=== PATIENT | male | born 1955 | race Caucasian/White ===

== ENCOUNTER 2018-10-02 11:00 | Inpatient (IN) | payer OTHER ==
--- NOTE | 2018-09-19 21:31 | HP ---
HISTORY AND PHYSICAL: DATE OF ADMISSION/SURGERY: 10/02/18 DATE OF OFFICE VISIT: 09/19/18 SURGEON: Mary Tan MD * (DICTATED BY CAMILLA GONZALEZ) PROCEDURE: Right total knee arthroplasty. CHIEF COMPLAINT: Right knee pain. HISTORY OF PRESENT ILLNESS: Mr. Calvo is a 63-year-old gentleman with end- stage osteoarthritis of the right knee. He has failed conservative treatment and elected to proceed with a right total knee arthroplasty, which is scheduled for 10/02/18. PAST MEDICAL HISTORY: Hypertension. PAST SURGICAL HISTORY: Testicular surgery for an undescended testicle as a small child. CURRENT MEDICATIONS: 1. Atenolol 50 mg daily. 2. Hydrochlorothiazide 25 mg daily. ALLERGIES: To MOTRIN causing a rash. FAMILY HISTORY: Coronary artery disease. SOCIAL HISTORY: He is a 63-year-old gentleman. He lives with his . He does not smoke or use drugs. Uses occasional alcohol. REVIEW OF SYSTEMS: A complete 14-point review of systems was reviewed with the patient. It was all negative or noncontributory. He denies history of DVT, PE , hepatitis, HIV or anesthesia problems. PHYSICAL EXAMINATION GENERAL: He is well developed, well nourished, in no acute distress. VITAL SIGNS: He stands 68 inches tall, weighs 295 pounds. His blood pressure is 142/80 and his heart rate is 68. HEENT: Normocephalic, atraumatic. NECK: Supple. No palpable lymph nodes. PULMONARY: The lungs are clear to auscultation bilaterally. CARDIO: Regular rate and rhythm. Strong S1, S2. ABDOMEN: Soft, nontender, nondistended. MUSCULOSKELETAL: Right lower extremity: The skin is intact. There are no open wounds or abrasions. There is a moderate joint effusion, some tenderness over the medial and lateral joint line. Range of motion is 10 to 110 degrees of flexion and there is a significant varus deformity. He has a 2+ dorsalis pedis pulse, intact sensation in his lower extremity. Muscle group strengths are intact at 5/5. NEUROLOGICAL: He is alert and oriented x3. ASSESSMENT AND PLAN: Mr. Calvo is a 63-year-old gentleman with end-stage osteoarthritis of the right knee. He has failed conservative treatment and elected to proceed with a right total knee arthroplasty. Surgery is scheduled for 10/02/[address] Tan discussed the risks and benefits of the surgery at today's visit and all of his questions were answered. He will follow up with Dr. Tan 2 weeks after the surgery. CAMILLA GONZALEZ [id number]/[facility] #: [id number] ANGELINA
[~2018-10-02 11:00] MED LIST: Buffered Lidocaine 0.9% SYRIN* 5 ML/SYR SYRINGE INTRADERM ONE; Tranexamic Acid 1,000 MG in NS 0.9% 50 ML* (outpatient use) IV SCH
--- OUTSIDE RECORDS SUMMARY | 2018-10-02 13:09 | XMS REPORT ---
:1955 External Reference #:[id number] Author Organization [employer] Address [address] [place] [address] [place] [address] Phone [phone] Care Team Providers Name Role Phone Roberto Lane MD Primary Care Physician Unavailable Payers Type Date Identification Numbers Payment Provider Subscriber Commercial Effective: Policy Number: [id number] [employer] Kathy Calvo 2012 Group Number: [id number] [address] Group Name: [id number] [place] [address] PayID: [id number] Problems Date Description Provider Status Onset: 03/07/2018 Localized, primary osteoarthritis Mary Tan M.D. Active Family History Date Family Member(s) Problem(s) Comments General Diabetes General Heart Disease General Hypertension Social History Type Date Description Comments Lives With Spouse Occupation [employer] ETOH Use Occasionally consumes alcohol Smoking Patient has never smoked Exercise Type/Frequency Exercises sporadically Allergies, Adverse Reactions, Alerts Date Description Reaction Status Severity Comments 03/07/2018 Motrin active Medications Medication Date Status Form Strength Qnty SIG Indications Ordering Provider Atenolol 00 Active Tablets 50mg 1 by Unknown 00 mouth every day Oxycodone HCL 04/09/20 Hx Tablets 5mg 40tabs 1-2 po Lj Martell 11 - q4h prn Zupruk, 03/07/20 pain Dari 18 Medications Administered in Office Medication Date Status Form Strength Qnty SIG Indications Ordering Provider Hyaluron Or Administered Injection Lewis Kaye M.D. [facility],For Intra-Articula r Inj Per Dose Hyaluron Or Administered Injection Mary Derivative,Ort 018 Dari [facility]ast [facility],For Intra-Articula r Inj Per Dose Hyaluron Or Administered Injection Mary Derivative,Ort 018 Dari Tan hilary,For Intra-Articula r Inj Per Dose Hyaluron Or Administered Injection Mary Derivative,OrDari Osborn,For Intra-Articula r Inj Per Dose Hyaluron Or Administered Injection Mary Derivative,OrDari Osborn,For Intra-Articula r Inj Per Dose Hyaluron Or Administered Injection Mary Derivative,Dari Chamberlain,For Intra-Articula r Inj Per Dose Depomedrol Administered Injection Mary 40MG Dandy Tan M.D. Depomedrol Administered Injection Mary 40MG Dandy Tan M.D. Vital Signs Date Vital Result Comment 09/19/2018 Height 68 inches 5'8" Weight 306.50 lb Heart Rate 68 /min BP Systolic 142 mmHg BP Diastolic 80 mmHg Respiratory Rate 20 /min Pain Level 5 BMI (Body Mass Index) 46.6 kg/m2 08/18/2018 Heart Rate 64 /min BP Systolic 140 mmHg BP Diastolic 86 mmHg Body Temperature 97.9 F Pain Level 2 07/30/2018 Height 68 inches 5'8" Weight 295.00 lb BP Systolic 118 mmHg BP Diastolic 74 mmHg Body Temperature 97.5 F BMI (Body Mass Index) 44.8 kg/m2 07/18/2018 Height 68 inches 5'8" Weight 290.00 lb BP Systolic 134 mmHg BP Diastolic 82 mmHg Body Temperature 98.2 F Pain Level 4 BMI (Body Mass Index) 44.1 kg/m2 07/11/2018 Height 67 inches 5'7" Heart Rate 66 /min BP Systolic 122 mmHg BP Diastolic 88 mmHg Respiratory Rate 18 /min Body Temperature 97.8 F Pain Level 6 06/06/2018 Height 67 inches 5'7" Weight 302.00 lb BP Systolic 128 mmHg BP Diastolic 80 mmHg Respiratory Rate 20 /min Pain Level 3 BMI (Body Mass Index) 47.3 kg/m2 03/07/2018 Height 67 inches 5'7" Weight 302.00 lb Heart Rate 73 /min BP Systolic 138 mmHg BP Diastolic 82 mmHg Respiratory Rate 18 /min Body Temperature 98.3 F Pain Level 3 BMI (Body Mass Index) 47.3 kg/m2 Results Test Date Test Result H/L Range Note Inr/Protime 09/19/2018 Inr 0.94 0.77-1.02 1 Laboratory test finding 09/19/2018 Partial Thrombo 30.2 seconds 26.0- 36.3 1 Time PTT Type & Screen 09/19/2018 Patient Blood Type O Positive 1 Antibody Screen NEGATIVE 1 Urinalysis Profile 09/19/2018 Urine Color Straw Urine Appearance Clear Urine Specific [place] 1.011 1.010-1.030 Urine pH 5.0 5-9 Urine Urobilinogen Negative Negative Urine Ketones Negative Negative Urine Protein Negative Negative Urine Leukocytes Negative Negative Urine Blood Negative Negative Urine Nitrite Negative Negative Urine Bilirubin Negative Negative Urine Glucose Negative Negative Urine Culture And 09/19/2018 Urine Culture SEE RESULT BELOW 2 Sensitivities CBC Auto Diff 09/17/2018 White Blood Count 8.6 10^3/uL 3.5-10.8 Red Blood Count 5.09 10^6/uL 4.00-5.40 Hemoglobin 14.9 g/dL 14.0-18.0 Hematocrit 43 % 42-52 Mean Corpuscular Volume 85 fL 80-94 Mean Corpuscular Hemoglobin 29 pg 27-31 Mean Corpuscular HGB Conc 34 g/dL 31-36 Red Cell Distribution Width 15 % 10.5-15 Platelet Count 323 10^3/uL 150-450 Mean Platelet Volume 7.3 um3 Low 7.4-10.4 Abs Neutrophils 6.4 10^3/uL 1.5-7.7 Abs Lymphocytes 1.4 10^3/uL 1.0-4.8 Abs Monocytes 0.7 10^3/uL 0-0.8 Abs Eosinophils 0.2 10^3/uL 0-0.6 Abs Basophils 0 10^3/uL 0-0.2 Abs Nucleated RBC 0 10^3/uL Granulocyte % 73.9 % 38-83 Lymphocyte % 16.0 % Low 25-47 Monocyte % 7.9 % High 0-7 Eosinophil % 1.7 % 0-6 Basophil % 0.5 % 0-2 Nucleated Red Blood Cells % 0.1 Basic Metabolic Panel 09/17/2018 Sodium 140 mmol/L 135-145 Potassium 4.1 mmol/L 3.5-5.0 Chloride 103 mmol/L 101-111 Co2 Carbon Dioxide 29 mmol/L 22-32 Anion Gap 8 mmol/L 2-11 Glucose 88 mg/dL 70-100 Blood Urea Nitrogen 18 mg/dL 6-24 Creatinine 1.00 mg/dL 0.67-1.17 BUN/Creatinine Ratio 18.0 8-20 Calcium 9.4 mg/dL 8.6-10.3 Egfr Non- 75.2 >60 Egfr 91.0 >60 3 1 BILATERAL PRIMARY OSTEOARTHRITIS OF KNEE, EFFUSION 2 SEE RESULT BELOW Name: KATHY CALVO : [address]: Mary Tan MD Acct: [id number] Unit: [id number] AGE: 63 Location: PAT Re09/19/18 SEX: M Status: REG REF SPEC: [id number] RJ: 09/19/[address] [facility] [address]: Mary Tan MD REQ: [id number] RECD: 09/19/18 STATUS: RONALDO RAMOS DR: Roberto Lane MD _ SOURCE: URINE SPDESC: ORDERED: Urine Culture QUERIES: Urine Source: Random Procedure Result Reported Site Urine Culture Final 09/20/18- 1238 ML No Growth (<1,000 CFU/mL) * ML - Main Lab . END OF REPORT DEPARTMENT OF PATHOLOGY, [address] [place] [address] Dakota Licea M.D. Director [facility] # [id number] 3 Because ethnic data is not always readily available, this report includes an eGFR for both -Americans and non- Americans. The National Kidney Disease Education Program (NKDEP) does not endorse the use of the MDRD equation for patients that are not between the ages of 18 and 70, are , have extremes of body size, muscle mass, or nutritional status, or are non- or non-. According to the National Kidney Foundation, irrespective of diagnosis, the stage of the disease is based on the level of kidney function: Stage Description GFR(mL/min/1.73 m(2)) 1 Kidney damage with normal or decreased GFR 90 2 Kidney damage with mild decrease in GFR 60-89 3 Moderate decrease in GFR 30-59 4 Severe decrease in GFR 15-29 5 Kidney failure <15 (or dialysis) Procedures Date CPT Code Description Status 07/30/2018 Inject/Drain Joint/Bursa Major W/O US Completed 07/18/2018 Inject/Drain Joint/Bursa Major W/O US Completed 07/11/2018 Inject/Drain Joint/Bursa Major W/O US Completed 03/07/2018 Inject/Drain Joint/Bursa Major W/O US Completed 01/28/2017 00620 Bronchospasm Provocation Evalu Completed 06/26/2013 94478 Stress Test Completed Encounters Type Date Location Provider CPT E/M Dx Office Visit 08/18/2018 2:45p [facility] M.D. 93272 M17.0 C.M.A. M25.461 M25.561 Office Visit 06/06/2018 8:15a [facility] M.D. 27941 M17.0 C.M.A. M25.461 M25.462 M25.562 M25.561 Office Visit 03/07/2018 8:00a [facility] M.D. 43387 M25.561 C.M.A. M25.562 M25.461 M25.462 M17.0 Office Visit 11/14/2011 9:00a [facility], 70658 805.4 Taye Chapin Office Visit 10/15/2011 9:00a [facility], 03866 805.4 Taye Chapin Office Visit 08/13/2011 9:45a [facility] 17384 805.4 Taye Chapin Office Visit 06/15/2011 9:30a [facility] 69513 805.4 Taye Chapin Office Visit 05/10/2011 1:00p [facility] 35500 805.4 Taye Chapin Office Visit 04/09/2011 1:30p [facility] 22839 805.4 Taye Chapin Plan of Care Future Appointment(s):10/15/2018 9:15 am - Mary Tan M.D. at [facility].10/02/2018 1:30 pm - Mary Tan M.D. at [facility].09/19/2018 - Mary Tan M.D.M25.461 Effusion, right kneeFollow up:Follow up: 2 weeks after [place].561 Pain in right kneeM17.0 Bilateral primary osteoarthritis of knee
--- OUTSIDE RECORDS SUMMARY | 2018-10-02 13:09 | XMS REPORT | Continuity of Care Document ---
:1955 External Reference #:[id number] M.D. Address [address] [facility] [address] [place] [address] Care Team Providers Name Role Phone HCP given Primary Care Physician Unavailable Payers Type Date Identification Numbers Payment Provider Subscriber Effective: 2012 Policy Number: [id number] [facility] Kathy Calvo Group Name: [employer] [address] PayID: [id number] [place] [address] Advance Directives Description No Information Available Problems Date Description Provider Status Onset: 03/16/2009 Benign essential hypertension Roberto Lane M.D. Active Onset: 03/16/2009 Disorder of lipid metabolism Roberto Lane M.D. Active Onset: 03/28/2015 Arthralgia of the lower leg Durga Omer D.O. Active Onset: 03/28/2015 Localized, primary osteoarthritis Durga Omer D.O. Active Onset: 08/31/[address] M.D. Active Family History Date Family Member(s) Problem(s) Comments Father 1926 Father age 77had an "oxygen" problem prior to his suicide Mother 1923 Mother General health good Number of Children 3 sons First Son Zion; lives in [place], [place] First Son 1983 Second Son Otto; [facility] mechanical commissioning engineer Second Son 1987 Third Son Quaker Third Son 1990 First Brother General Health Good First Brother Aj Second Brother General Health Good Second Brother Perry Third Brother General Health Good Third Brother Bro Social History Type Date Description Comments Sex Unknown Education Highest level of education completed is 2 years of college Marital Status Patient is Employment 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 Tobacco Use Reviewed: 09/01/14 Never Smoked Cigarettes Smoking Status Reviewed: 09/17/18 Never Smoked Cigarettes ETOH Use Rare Alcohol Use Recreational Drug Use Never Used Drugs Tobacco Use Start: Unknown Non Smoker / No Tobacco Sun Exposure Minimum amount of sun exposure Seat Belt/Car Seat Always uses a seat belt Currently Active The patient is currently sexually active (once in awhile) # Partners in a Lifetime The patient has had 1 sexual partner Additional Info Sexual preference is women Allergies, Adverse Reactions, Alerts Date Description Reaction Status Severity Comments 01/27/2015 Motrin Blotchy skin lasting Active Mild days 02/08/2004 Nsaid Inactive Motrin blotchy skin reaction 01/27/2015 NKDA Inactive Medications Medication Date Status Form Strength Qnty SIG Indications Ordering Provider Metamucil Powder 09/16 Active one dose at lunchtime daily Aspirin Ec 06/[address] 81mg 1 pill I10 Silcoff, daily for flo Mejia M.D. disease prevention Atenolol 08/31 Active Tablets 50mg 90tab Take 1 I10 Silcoff, s Tablet By Stevan Mejia M.D. Every Morning For High Blood Pressure Fish Oil 03/01 Active Capsules 2 daily Hydrochlorothiazi 03/17 Active Tablets 25mg 90tab Take 1 I10 Silcoff, s Tablet By Roberto Mouth M.D. Every Morning For High Blood Pressure Ventolin HFA 08/06 Hx Aerosol 108(90Bas 1inha 1-2 puff R05 Silcoff, e) ler q4 hours Major Mejia mcg/Act for breath M.D. 01/07 Flovent HFA 08/06 Hx Aerosol 110mcg/Ac 12gm 2 R05 Silcoff, t inhalation Major Mejia s by mouth M.DIrma 09/24 2 times daily; rinse mouth after use. for cough Tussin Chest 08/06 Hx Syrup 100mg/5ML 118ml 5-10 ml q R05 Silcoff, 6 hours Roberto - for cough, M.D. 08/24 prn Transderm-Scop 07/12 Hx Patches 1mg/3Days 1unit apply 1 Silcoff, (1.5 MG) 72HR s patch as Roberto, - needed, at M.D. 07/19 least hours before exposure to motion sickness causing travel; change q3 days if needed Clarinex 12/20 Hx Tablets 5mg 30tab take 1 R05 s tablet by A. - mouth once Klepack, 01/20 daily for M.D. reducing allergic reactions Potassium/Magnesi 12/06 Hx Tablets 1 po daily Unknown um /2016 - 09/16 Symbicort 02/28 Hx Aerosol 160-4.5mc 10.20 2 puffs R05 Silcoff, g/Act 0gm 2x/day; Roberto - agustín M.D. 12/04 after use; stop when cough at bay x1wk; resume at onset of colds Prednisone 02/28 Hx Tablets 20mg 21tab 3 by mouth R05 Silcoff, s every Roberto, - morning M.D. 03/08 for 5 days then 2 every morning for 3 days then stop it Azithromycin 10/03 Hx Tablets 250mg 6tabs take 2 J01.10 Sopchak, tablets by Durga, - mouth D.O. 10/07 daily for 3 days Amoxicillin 09/29 Hx Tablets 875mg 20tab 1 tab J01.10 Sopchak, s twice a Durga, - day for 10 D.O. Symbicort 09/29 Hx Aerosol 80-4.5mcg 1samp 2 R05 Sopchak, /2014 /Act le inhalation Durga, - twice a D.O. 10/13 day sxs under control then decr to 1 puff twice a day, then can reduce to 1x/day and then stop Glucosamine 03/01 Hx Capsules 2 daily Unknown Chondroitin Complex - 09/16 Hydrocodone 12/15 Hx Liquid ER 10-8mg/5M 100ml 1 teaspoon 786.2 Sopchak , Polistirex/Chlorp L at night Durga, heniramine - and every D.O. Polistirex 01/26 12hours as needed for cough/slee p Amlodipine 02/26 Hx Tablets 10mg 90tab take 1 I10 Silcoff, Besylate s tablet Roberto, - daily for M.D. 12/07 high blood /2015 pressure Amlodipine 08/03 Hx Tablets 10mg 90tab take 1 401.1 Silcoff, Besylate s tablet Roberto, - daily for .D. 02/25 high blood /2013 pressure Amlodipine 03/11 Hx Tablets 5mg 90tab Take 1 401.1 Silcoff, Besylate s Tablet Roberto, - Once Daily M.D. 08/03 For High /2012 Blood Pressure. Losartan 08/01 Hx Tablets 50mg 90tab 1 by mouth 401.1 Silcoff, Potassium s every day Roberto, - for high M.D. 10/13 blood /2011 pressure (to replace lisinopril ) Doxycycline 11/30 Hx Capsules 100mg 20cap [address] Hyclate s ten days A. - until gone Lennox, 12/10.D. Benzonatate 11/30 Hx Capsules 100mg 24cap 1 qid prn 786.2 s cough A. - Lennox, 12/10 M.D. Viagra 01/17 Hx Tablets 100mg 18tab 1 by mouth 607.84 Silcoff, s every day Roberto, - as needed .D. 08/01 for erectile dysfunctio n Auralgan Otic 05/02 Hx 1Bott instill 388.70 Silcoff, le 2-4 gtts Roberto, - into .D. 05/12 painful ear q2h prn for ear pain Amoxicillin-Pot 04/28 Hx Tablets 875-125mg 20tab 1 po bid 381.4 Silcoff , Clavulanate s Roberto, - M.D. 05/08 Flovent HFA 04/28 Hx Aerosol 110mcg/Ac 1unit 2 puff bid 786.2 Silcoff, t s for cough; Roberto, - stop when .D. 05/28 cough at bay for 1 week (gargle after use) Proair HFA 04/28 Hx Aerosol 108(90Bas 8.500 2 puffs 786.2 Silcoff, e) mcg/ac gm q4h prn Roberto, - for cough M.D. 05/28 Tobramycin 04/26 Hx Solution 0.3% 5ml 1-2 gtts 372.00 Silco, ou qid x5 Roberto, - days; march M.D. 05/01 stop when eye symptoms resolved for 24hrs Azithromycin 04/26 Hx Tablets 250mg 6tabs 2 po qd on 381.4 Silcoff, day 1 then Roberto, - 1 po qd M.D. 04/28 for 4 days Robitussin ac 04/26 Hx 8Oz 2 tsp po 786.2 Silcoff q4h prn Roberto, - for cough; M.D. 05/06 try to limit to nighttime use (as it is sedating) Atenolol 03/17 Hx Tablets 50mg 1/2 po qd 401.1 Silco for high Roberto, - blood M.D. 03/24 pressure x1wk then D/C Cialis 03/17 Hx Tablets 10mg 18tab 1/2-1 po 607.84 Silco s qd prn Roberto, - M.D. 01/16 Zetia 11/05 Hx Tablets 10mg 90tab 1 po qd 272.2 klepack s for - cholestero 03/15 Crestor 12/26 Hx Tablets 10mg 30tab 1 PO PM 272.2 klepack /2006 s - 11/05 Atenolol 11/07 Hx Tablets 50mg 90tab 1 PO QHS 401.1 Silco s for high Roberto, - BP M.D. 03/17 Flonase 07/27 Hx Adrian 50mcg/Spr 1unit 2 sprays 388.70 klepa ay s in each - nostril 07/10 once A day Amoxil 07/14 Hx Tablets 500mg 30tab 1 po tid 381.00 Silcoff s for ear Roberto, - infection M.D. 07/24 Cortisporin Otic 07/14 Hx Suspension 5mg;78882 1Bott 3-4 gtts 380.22 Silcoff U;10mg/ML le tid To Roberto, - Right Ear M.D. 07/21 For 1 Week /2004 Asp 11/21 Hx Capsules 81mg 100ca 1 Tab qd . ps To Prevent Gabriel, - A Stroke M.D. 03/28 Lisinopril 11/21 Hx Tablets 20mg 90tab Take 11/26 401.1 Silcoff, s tab daily Roberto, - for blood M.D. 08/01 pressure Anusol HC 05/19 Hx Cream 2.5% 30gm apply to . anal area Gabriel, - tid Or prn M.D. 03/16 Lipitor 05/19 Hx Tablets 20 90tab 1 tab qd klepa s to reducde - blood fat 12/26 Lipitor 02/01 Hx Tablets 10mg 90tab 1 for high s blood fat Gabriel, - po qd to M.D. 11/29 blood fats Rhinocort Nasal 01/19 Hx Suspension 50mcg/Inh 1 spray . Inhalation alation per Gabriel, - nostril 1 M.D. 05/19 0r 2 x qd Zyrtec D 01/19 Hx Tablets 5mg;120 60tab 1 PO bid mg s Gabriel, - M.D. 05/19 Aspirin Hx Tablets 325mg 1 by mouth Unknown /0000 every day - as needed 06/11 Medications Administered in Office Medication Date Status Form Strength Qnty SIG Indications Ordering Provider injection, Administered Injection arin Omer, 10 mg 015 Linda Calixto Immunizations CPT Code Status Date Vaccine Lot # [id number] Given 12/20/2016 Influenza Virus Vaccine, Quadrivalent, [place] [id number] Given 09/01/2014 Zostavax [id number] Given 09/03/2012 Flu, Split Virus 3Yrs 72292 Given 11/30/2011 Adacel or Boostrix, TDaP [id number] Given 08/27/2011 Flu, Split Virus 3Yrs [id number] Given 09/25/2003 Flu, Split Virus 3Yrs Vital Signs Date Vital Result Comment 09/17/2018 10:28am BP Systolic 152 mmHg BP Diastolic 96 mmHg Heart Rate 72 /min reg Respiratory Rate 16 /min not laboured Height 68 inches 5'8" Weight 287.00 lb BMI (Body Mass Index) 43.6 kg/m2 07/09/2018 9:04am BP Systolic 130 mmHg R arm sitting BP Diastolic 82 mmHg R arm sitting Heart Rate 60 /min reg Height 68 inches 5'8" w/shoes Weight 299.00 lb w/shoes BMI (Body Mass Index) 45.5 kg/m2 01/08/2018 11:09am BP Systolic 132 mmHg BP Diastolic 82 mmHg BP Systolic Recheck 160 mmHg R arm sitting BP Diastolic Recheck 90 mmHg R arm sitting Weight 297.00 lb w/shoes 08/06/2017 4:38pm BP Systolic 132 mmHg BP Diastolic 80 mmHg Body Temperature 97.9 F Weight 284.00 lb with sneakers 06/12/2017 8:38am BP Systolic 140 mmHg BP Diastolic 80 mmHg BP Systolic Recheck 136 mmHg R arm sitting BP Diastolic Recheck 82 mmHg R arm sitting Heart Rate 56 /min reg Height 68 inches 5'8" w/shoes Weight 279.00 lb w/shoes BMI (Body Mass Index) 42.4 kg/m2 01/23/2017 10:12am BP Systolic 142 mmHg BP Diastolic 82 mmHg Heart Rate 88 /min at rest, 72 after ambulation O2 % BldC Oximetry 96 % at rest, 95% after ambulation Weight 291.00 lb 12/20/2016 2:01pm BP Systolic 140 mmHg BP Diastolic 84 mmHg Heart Rate 66 /min O2 % BldC Oximetry 96 % Body Temperature 97.9 F Height 68 inches 5'8" Weight 303.00 lb BMI (Body Mass Index) 46.1 kg/m2 02/29/2016 12:03pm BP Systolic 148 mmHg BP Diastolic 80 mmHg Heart Rate 84 /min reg Respiratory Rate 14 /min not laboured Body Temperature 98.2 F Height 68 inches w/shoes Weight 297.00 lb w/shoes BMI (Body Mass Index) 45.2 kg/m2 09/29/2015 11:26am BP Systolic 152 mmHg BP Diastolic 84 mmHg Body Temperature 98.3 F 08/31/2015 9:04am BP Systolic 136 mmHg BP Diastolic 78 mmHg BP Systolic Recheck 148 mmHg R arm sitting BP Diastolic Recheck 90 mmHg R arm sitting Heart Rate 84 /min reg Body Temperature 98.2 F Height 68 inches 5'8" w/shoes Weight 286.00 lb w/shoes BMI (Body Mass Index) 43.5 kg/m2 06/13/2015 10:48am BP Systolic 150 mmHg BP Diastolic 74 mmHg Weight 288.00 lb shoes on 03/28/2015 12:14pm BP Systolic 165 mmHg BP Diastolic 79 mmHg Heart Rate 76 /min Weight 284.00 lb w/shoes 03/02/2015 8:44am BP Systolic 138 mmHg BP Diastolic 76 mmHg BP Systolic Recheck 132 mmHg R arm sitting BP Diastolic Recheck 80 mmHg R arm sitting Heart Rate 88 /min reg Height 68 inches 5'8" shoes on Weight 297.00 lb shoes on BMI (Body Mass Index) 45.2 kg/m2 01/27/2015 1:30pm BP Systolic 146 mmHg BP Diastolic 84 mmHg Weight 296.00 lb Shoes on 12/15/2014 2:39pm BP Systolic 138 mmHg BP Diastolic 84 mmHg Heart Rate 96 /min Body Temperature 97.7 F Weight 290.00 lb 09/01/2014 9:06am BP Systolic 138 mmHg BP Diastolic 86 mmHg BP Systolic Recheck 140 mmHg R arm sitting BP Diastolic Recheck 80 mmHg R arm sitting Height 68 inches 5'8" shoes on Weight 285.00 lb shoes on BMI (Body Mass Index) 43.3 kg/m2 06/23/2014 1:18pm BP Systolic 130 mmHg BP Diastolic 88 mmHg Weight 289.00 lb 02/26/2014 4:22pm BP Systolic 154 mmHg BP Diastolic 82 mmHg BP Systolic Recheck 150 mmHg R arm sitting BP Diastolic Recheck 96 mmHg R arm sitting Weight 295.00 lb 10/07/2013 8:38am BP Systolic 144 mmHg BP Diastolic 82 mmHg BP Systolic Recheck 138 mmHg R arm sitting BP Diastolic Recheck 70 mmHg R arm sitting Weight 290.00 lb shoes on 08/03/2013 10:27am BP Systolic 138 mmHg BP Diastolic 94 mmHg BP Systolic Recheck 148 mmHg R arm sitting BP Diastolic Recheck 94 mmHg R arm sitting Heart Rate 82 /min reg Respiratory Rate 14 /min not laboured Height 67.5 inches 5'7.50" Weight 285.00 lb BMI (Body Mass Index) 44.0 kg/m2 08/03/2013 10:23am Height 67.5 inches 5'7.50" Weight 285.00 lb BMI (Body Mass Index) 44.0 kg/m2 03/11/2013 11:42am BP Systolic 140 mmHg BP Diastolic 98 mmHg BP Systolic Recheck 148 mmHg R arm sitting BP Diastolic Recheck 88 mmHg R arm sitting Heart Rate 92 /min reg Respiratory Rate 14 /min not laboured O2 % BldC Oximetry 9596 % ambulating 96% Body Temperature 99.2 F Weight 277.00 lb 11/14/2012 9:05am BP Systolic 140 mmHg BP Diastolic 90 mmHg BP Systolic Recheck 140 mmHg R arm sitting BP Diastolic Recheck 90 mmHg R arm sitting Weight 275.00 lb Last Menstrual Period 0 10/13/2012 1:54pm BP Systolic 148 mmHg BP Diastolic 84 mmHg Respiratory Rate 16 /min not laboured Body Temperature 98.0 F Weight 269.00 lb Last Menstrual Period 0 09/08/2012 1:07pm BP Systolic 150 mmHg BP Diastolic 92 mmHg Respiratory Rate 16 /min not laboured 08/01/2012 12:13pm BP Systolic 130 mmHg BP Diastolic 90 mmHg BP Systolic Recheck 130 mmHg R arm sitting BP Diastolic Recheck 92 mmHg R arm sitting Heart Rate 72 /min reg Height 67.75 inches 5'7.75" Weight 275.00 lb BMI (Body Mass Index) 42.1 kg/m2 11/30/2011 9:04am BP Systolic 112 mmHg BP Diastolic 80 mmHg Respiratory Rate 16 /min Body Temperature 97.9 F Height 67.75 inches 5'7.75" Weight 274.00 lb BMI (Body Mass Index) 42.0 kg/m2 02/14/2011 3:22pm BP Systolic 140 mmHg BP Diastolic 90 mmHg Weight 275.00 lb Last Menstrual Period 0 01/17/2011 9:06am BP Systolic 120 mmHg BP Diastolic 84 mmHg Height 68.75 inches 5'8.75" Weight 271.00 lb BMI (Body Mass Index) 40.3 kg/m2 07/17/2010 9:17am BP Systolic 118 mmHg BP Diastolic 82 mmHg BP Systolic Recheck 122 mmHg R arm sitting BP Diastolic Recheck 70 mmHg R arm sitting Heart Rate 90 /min reg Weight 268.00 lb 05/15/2010 4:06pm BP Systolic 130 mmHg BP Diastolic 92 mmHg Body Temperature 98.1 F 04/28/2010 3:49pm BP Systolic 130 mmHg BP Diastolic 80 mmHg Heart Rate 100 /min reg Respiratory Rate 18 /min not laboured Body Temperature 99.0 F 04/26/2010 11:48am BP Systolic 124 mmHg BP Diastolic 90 mmHg Heart Rate 116 /min reg Respiratory Rate 16 /min not laboured Body Temperature 98.5 F Weight 265.00 lb Last Menstrual Period 0 03/17/2010 9:55am BP Systolic 140 mmHg BP Diastolic 76 mmHg Heart Rate 76 /min reg Respiratory Rate 14 /min not laboured Height 67.75 inches 5'7.75" Weight 269.00 lb BMI (Body Mass Index) 41.2 kg/m2 Last Menstrual Period 0 12/30/2009 2:35pm BP Systolic 155 mmHg BP Diastolic 73 mmHg Heart Rate 76 /min Weight 270.00 lb Last Menstrual Period 0 03/16/2009 10:51am BP Systolic 100 mmHg BP Diastolic 80 mmHg Weight 260.00 lb Last Menstrual Period 0 04/22/2008 10:30am BP Systolic 136 mmHg BP Diastolic 86 mmHg Height 68.25 inches 5'8.25" Without Shoes Weight 264.50 lb BMI (Body Mass Index) 39.9 kg/m2 12/10/2007 11:38am BP Systolic 122 mmHg recheck BP Diastolic 80 mmHg recheck Height 68.25 inches 5'8.25" Without Shoes 12/10/2007 11:21am BP Systolic 138 mmHg please recheck this for me BP Diastolic 90 mmHg please recheck this for me Height 68.25 inches 5'8.25" Without Shoes Weight 269.00 lb BMI (Body Mass Index) 40.6 kg/m2 Last Menstrual Period 0 11/05/2007 9:51am BP Systolic 126 mmHg BP Diastolic 70 mmHg Height 68.25 inches 5'8.25" Without Shoes Weight 268.00 lb BMI (Body Mass Index) 40.4 kg/m2 12/26/2006 8:57am BP Systolic 122 mmHg BP Diastolic 74 mmHg Height 68.25 inches 5'8.25" Without Shoes Weight 259.00 lb BMI (Body Mass Index) 39.1 kg/m2 11/07/2006 3:55pm BP Systolic 152 mmHg BP Diastolic 96 mmHg Body Temperature 98.3 F Height 68.25 inches 5'8.25" Without Shoes Weight 264.00 lb BMI (Body Mass Index) 39.8 kg/m2 07/10/2006 9:16am BP Systolic 120 mmHg recheck BP Diastolic 82 mmHg recheck Height 68.25 inches 5'8.25" Without Shoes 07/10/2006 8:59am BP Systolic 142 mmHg BP Diastolic 84 mmHg Height 68.25 inches Without Shoes Weight 258.00 lb BMI (Body Mass Index) 38.9 kg/m2 05/09/2006 2:15pm BP Systolic 140 mmHg BP Diastolic 84 mmHg Height 67 inches 5'7" Weight 266.00 lb BMI (Body Mass Index) 41.7 kg/m2 11/29/2005 9:03am BP Systolic 126 mmHg BP Diastolic 88 mmHg Height 67 inches 5'7" Weight 257.00 lb BMI (Body Mass Index) 40.2 kg/m2 10/01/2005 11:04am BP Systolic 120 mmHg BP Diastolic 90 mmHg Height 67 inches 5'7" 08/17/2005 4:04pm BP Systolic 130 mmHg BP Diastolic 90 mmHg Height 67 inches 5'7" 07/27/2005 3:15pm BP Systolic 130 mmHg BP Diastolic 84 mmHg Body Temperature 98.3 F Height 67 inches 5'7" 07/14/2005 12:02pm BP Systolic 122 mmHg BP Diastolic 88 mmHg Body Temperature 98.7 F Height 67 inches 5'7" Weight 264.00 lb BMI (Body Mass Index) 41.3 kg/m2 03/01/2005 8:51am BP Systolic 120 mmHg BP Diastolic 90 mmHg Height 67 inches 5'7" Weight 266.00 lb BMI (Body Mass Index) 41.7 kg/m2 11/21/2004 2:35pm Height 67 inches 5'7" Weight 265.00 lb BMI (Body Mass Index) 41.5 kg/m2 05/19/2004 3:51pm BP Systolic 152 mmHg R Arm LG Cuff Sitting BP Diastolic 100 mmHg R Arm LG Cuff Sitting Height 67 inches 5'7" Weight 261.00 lb BMI (Body Mass Index) 40.9 kg/m2 02/02/2004 2:03pm Body Temperature 99.1 F Weight 260.00 lb Last Menstrual Period 0 01/19/2004 1:04pm Body Temperature 98.2 F Weight 259.00 lb Results Test Date Facility Test Result H/L Range Note Urine Micro Inhouse 01/08/2018 In House Ua Specific Ozan 1.025 Ua PH 5.0 Basic Metabolic Panel 01/08/2018 [facility] Sodium 139 mmol/L 133- 145 [phone] Potassium 4.3 mmol/L 3.5-5.0 Chloride 104 mmol/L 101-111 Co2 Carbon Dioxide 29 mmol/L 22-32 Anion Gap 6 mmol/L 2-11 Glucose 83 mg/dL 70-100 Blood Urea Nitrogen 19 mg/dL 6-24 Creatinine 1.04 mg/dL 0.67-1.17 BUN/Creatinine Ratio 18.3 8-20 Calcium 9.3 mg/dL 8.6-10.3 Egfr Non- 72.1 >60 Egfr 92.8 >60 1 Basic Metabolic Panel 01/23/2017 [facility] Sodium 135 mmol/L 133- 145 [phone] Potassium 3.8 mmol/L 3.5-5.0 Chloride 97 mmol/L Low 101-111 Co2 Carbon Dioxide 32 mmol/L 22-32 Anion Gap 6 mmol/L 2-11 Glucose 88 mg/dL 70-100 Blood Urea Nitrogen 13 mg/dL 6-24 Creatinine 1.02 mg/dL 0.67-1.17 BUN/Creatinine Ratio 12.7 8-20 Calcium 9.7 mg/dL 8.6-10.3 Egfr Non- 74.0 >60 Egfr 95.2 >60 2 Laboratory test 08/14/2016 [facility] Surgical Pathology SEE RESULT 3 finding [phone] BELOW Urine Micro Inhouse 03/02/2015 In House Ua WBC 2-5 Ua RBC 2-4 Ua Casts - Ua Epi 0-3 Ua Other sediment, fibers Ua Glucose - Ua Bilirubin - Ua Ketones - Ua Specific Ozan 1.020 Ua Blood - Ua PH 6.0 Ua Protein - Ua Urobilinogen - Ua Nitrite - Ua Leukocytes - Basic Metabolic Panel 03/02/2015 [facility] Sodium 137 mmol/L 133- 145 [phone] Potassium 3.9 mmol/L 3.5-5.0 Chloride 100 mmol/L Low 101-111 Co2 Carbon Dioxide 28 mmol/L 22-32 Anion Gap 9 mmol/L 2-11 Glucose 114 mg/dL High 70-100 Blood Urea Nitrogen 15 mg/dL 6-24 Creatinine 0.99 mg/dL 0.67-1.17 BUN/Creatinine Ratio 15.2 8-20 Calcium 9.2 mg/dL 8.6-10.3 Egfr Non- 77.1 >60 Egfr 99.2 >60 4 Xray 01/27/2015 [facility] X-Ray, Knee, 3 mild OA 5 Views, Bilateral bilaterally Lipid Profile 02/22/2014 [facility] Triglycerides 145 mg/dL 6 (Trig/Chol/HDL) [phone] Cholesterol 234 mg/dL 7 HDL Cholesterol 35.5 mg/dL 8 LDL Cholesterol 170 mg/dL 9 Laboratory test finding 02/22/2014 [facility] Glucose 85 mg/dL 70- 100 10 [phone] Urine Micro Inhouse 08/03/2013 In House Ua WBC - Ua RBC - Ua Casts - Ua Epi - Ua Other - Ua Glucose - Ua Bilirubin - Ua Ketones - Ua Specific Ozan 1.010 Ua Blood - Ua PH 5.0 Ua Protein - Ua Urobilinogen - Ua Nitrite - Ua Leukocytes - Basic Metabolic Panel 07/24/2013 [facility] Sodium 136 mmol/L 133- 145 [phone] Potassium 3.5 mmol/L 3.5-5.0 Chloride 100 mmol/L Low 101-111 Co2 Carbon Dioxide 31.0 mmol/L 22-32 Anion Gap 5.0 mmol/L 2-11 Glucose 87 mg/dL 70-100 Blood Urea Nitrogen 14 mg/dL 6-24 Creatinine 0.90 mg/dL 0.50-1.40 BUN/Creatinine Ratio 15.6 8-20 Calcium 8.8 mg/dL 8.1-9.9 Egfr Non- 86.7 >60 Egfr 111.5 >60 11 Lipid Profile 07/24/2013 [facility] Triglycerides 128 mg/dL 40-200 (Trig/Chol/HDL) [phone] Cholesterol 233 mg/dL High Less than 200 HDL Cholesterol 36 mg/dL Low 40-60 12 Cholesterol/HDL Ratio 6.5 Average High 1-4.44 LDL Cholesterol 171.4 High Less Than 100 13 Testosterone Free & 07/24/2013 [facility] Free Testosterone 7.1 ng/dL - 14 Total [phone] ng/dl Testosterone 204 ng/dL 240-950 15 Laboratory test 07/24/2013 [facility] Hepatitis C Nonreactive Nonreactive finding [phone] Antibody Urine Micro 08/01/2012 In House Ua WBC - Inhouse Ua RBC - Ua Casts - Ua Epi - Ua Other - Ua Glucose - Ua Bilirubin - Ua Ketones - Ua Specific Ozan 1.010 Ua Blood - Ua PH 7.0 Ua Protein - Ua Urobilinogen - Ua Nitrite - Ua Leukocytes - Basic Metabolic Panel 07/30/2012 [facility] Sodium 139 mmol/L 135- 145 [phone] Potassium 3.8 mmol/L 3.5-5.0 Chloride 102 mmol/L 101-111 Co2 (Carbon Dioxide) 29.0 mmol/L 22-32 Anion Gap 8.0 mmol/L 2-11 16 Glucose 88 mg/dL 70-100 BUN 16 mg/dL 6-24 Creatinine 1.1 mg/dL 0.50-1.40 One Over Creatinine 0.90 BUN/Creatinine Ratio 14.5 8-20 Calcium 9.0 mg/dL 8.1-9.9 eGFR Non- 69.0 > 60 eGFR 88.7 > 60 17 Xray 11/30/2011 [facility] X-Ray, Chest, 2 wnl Views Laboratory test 11/30/2011 [facility] Bordetella 18 finding [phone] Pertussis ----- <SEE NOTE> CBC Auto Diff 03/26/2011 [facility] White Blood Count 16.0 CUMM High 4.8-10 [phone] .8 Red Cell Count 5.02 CUMM 4.6-6.2 Hemoglobin 14.9 g/dL 14.0-18.0 Hematocrit 44 % 42-52 Mean Corpuscular Volume 87 um3 80-94 Mean Corpuscular Hemoglob 30 pg 27-31 Mean Corpuscular HGB Cone 34 g/dL 32-36 Redcell Distribution WDTH 14 % 10.5-15 Platelet Count 260 CUMM 150-450 Mean Platelet Volume 7.1 um3 Low 7.4-10.4 19 Manual Differential 03/26/2011 [facility] Polysegmented Neutrophil 81 % 38-83 [phone] Band Neutrophil 4 % 0-8 Lymphocyte 10 % Low 25-47 Monocyte 4 % 0-13 Basophil 1 % 0-2 Absolute Neutrophil Count 13.6 RBC Morphology NORMAL Protime 03/26/2011 [facility] Inr 1.12 0.82-1.17 20 [phone] Protime 13.3 SEC 10.2-14.8 21 Laboratory test 03/26/2011 [facility] PTT (Aptt) 26.6 25.15-38.53 finding [phone] Comp Metabolic 03/26/2011 [facility] Sodium 134 mmol/L Low 135-145 Panel [phone] Potassium 3.8 mmol/L 3.5-5.0 Chloride 98 mmol/L Low 101-111 Co2 (Carbon Dioxide) 27.0 mmol/L 22-32 Anion Gap 9.0 mmol/L 2-11 22 Glucose 119 mg/dL High 70-100 BUN 20 mg/dL 6-24 Creatinine 1.50 mg/dL High 0.50-1.40 One Over Creatinine 0.60 BUN/Creatinine Ratio 13.3 8-20 Calcium 9.2 mg/dL 8.1-9.9 Total Protein 7.0 GM/DL 6.2-8.1 Albumin 4.0 GM/DL 3.6-5.4 Globulin 3.0 GM/DL 2-4 Albumin/Globulin Ratio 1.3 1-3 Bilirubin Total 0.9 mg/dL 0.4-1.5 23 Alkaline Phosphatase 64 U/L 39-117 Alt (SGPT) 34 U/L 17-63 Ast (Sgot) 38 U/L 12-42 eGFR Non- 48.4 > 60 eGFR 62.3 > 60 24 Basic Metabolic Panel 07/17/2010 [facility] Sodium 137 mmol/L 135- 145 [phone] Potassium 4.2 mmol/L 3.5-5.0 Chloride 103 mmol/L 101-111 Co2 (Carbon Dioxide) 28.0 mmol/L 22-32 Anion Gap 6.0 mmol/L 2-11 25 Glucose 83 mg/dL 70-100 26 BUN 12 mg/dL 6-24 Creatinine 0.95 mg/dL 0.50-1.40 One Over Creatinine 1.00 BUN/Creatinine Ratio 12.6 8-20 Calcium 9.3 mg/dL 8.1-9.9 27 eGFR Non- 87.5 > 60 eGFR 105.9 > 60 28 Xray 04/28/2010 [facility] X-Ray, Chest, 2 Nil acute 29 Views Urine Micro Inhouse 03/17/2010 In House Ua WBC - Ua RBC - Ua Casts - Ua Epi - Ua Other - Ua Glucose - Ua Bilirubin - Ua Ketones - Ua Specific Ozan 1.030 Ua Blood - Ua PH 5.0 Ua Protein tr Ua Urobilinogen - Ua Nitrite - Ua Leukocytes - Basic Metabolic Panel 03/17/2010 [facility] Sodium 140 mmol/L 135- 145 [phone] Potassium 4.6 mmol/L 3.5-5.0 Chloride 105 mmol/L 101-111 Co2 (Carbon Dioxide) 27.0 mmol/L 22-32 Anion Gap 8.0 mmol/L 2-11 30 Glucose 89 mg/dL 70-100 31 BUN 18 mg/dL 6-24 Creatinine 1.10 mg/dL 0.50-1.40 One Over Creatinine 0.90 BUN/Creatinine Ratio 16.4 8-20 Calcium 9.3 mg/dL 8.1-9.9 32 eGFR Non- 73.9 > 60 eGFR 89.4 > 60 33 Laboratory test finding 03/17/2010 [facility] Alt (SGPT) 26 U/L 17- 63 [phone] Lipid Profile 03/17/2010 [facility] Triglyceride 143 mg/dL 40-200 (Trig/Chol/HDL) [phone] Cholesterol 238 mg/dL High Less Than 200 34 High Density Lipoprotein 31 mg/dL Low 40-60 35 Cholesterol/HDL Ratio 7.68 AVERAGE High 1-4.97 Low Density Lipoprotein 178 mg/dL High Less Than 100 36 Basic Metabolic Panel 03/16/2009 [facility] Sodium 135 mmol/L 135- 145 [phone] Potassium 4.6 mmol/L 3.5-5.0 Chloride 103 mmol/L 101-111 Co2 (Carbon Dioxide) 26.0 mmol/L 22-32 Anion Gap 6.0 mmol/L 2-11 37 Glucose 90 mg/dL 70-100 38 BUN 19 mg/dL 6-24 Creatinine 1.10 mg/dL 0.50-1.40 One Over Creatinine 0.90 BUN/Creatinine Ratio 17.3 8-20 Calcium 9.4 mg/dL 8.1-9.9 39 Lipid Profile 03/16/2009 [facility] Triglyceride 127 mg/dL 40-200 (Trig/Chol/HDL) [phone] Cholesterol 250 mg/dL High Less Than 200 40 High Density Lipoprotein 33 mg/dL Low 40-60 41 Cholesterol/HDL Ratio 7.58 AVERAGE High 1-4.97 Low Density Lipoprotein 192 mg/dL High Less Than 100 42 Lipid Profile 12/05/2007 [facility] Cholesterol/HDL 6.39 High 1-4.97 (Trig/Chol/HDL) [phone] Ratio AVERAGE Cholesterol 179 mg/dL Less Than 200 43 Triglyceride 133 mg/dL 40-200 High Density Lipoprotein 28 mg/dL Low 40-60 44 Low Density Lipoprotein 124 mg/dL High Less Than 100 45 Liver Function Panel 12/05/2007 [facility] Albumin/Globulin Ratio 1.5 1-3 [phone] Albumin 3.8 GM/DL 3.6-5.4 Alkaline Phosphatase 71 U/L 39-117 Alt (SGPT) 30 U/L 17-63 Ast (Sgot) 21 U/L 12-42 Bilirubin Direct 0.2 mg/dL 0.1-0.5 Globulin 2.6 GM/DL 2-4 Indirect Bilirubin 0.9 mg/dL High 0.1-0.75 Bilirubin Total 1.1 mg/dL 0.4-1.5 Total Protein 6.4 GM/DL 6.2-8.1 Lipid Profile 10/30/2007 [facility] Cholesterol/HDL 7.36 High 1-4.97 (Trig/Chol/HDL) [phone] Ratio AVERAGE Cholesterol 243 mg/dL High Less Than 200 46 Triglyceride 128 mg/dL 40-200 High Density Lipoprotein 33 mg/dL Low 40-60 47 Low Density Lipoprotein 184 mg/dL High Less Than 100 48 Comp Metabolic Panel 10/30/2007 [facility] Over Creatinine 0.83 [phone] Anion Gap 7.0 mmol/L 2-11 49 Albumin/Globulin Ratio 1.3 1-3 Albumin 3.6 GM/DL 3.6-5.4 Alkaline Phosphatase 73 U/L 39-117 Alt (SGPT) 30 U/L 17-63 Ast (Sgot) 20 U/L 12-42 BUN 15 mg/dL 6-24 Calcium 9.0 mg/dL 8.7-10.2 Chloride 104 mmol/L 101-111 Co2 (Carbon Dioxide) 28.0 mmol/L 22-32 Globulin 2.8 GM/DL 2-4 Glucose 88 mg/dL 70-105 Potassium 4.2 mmol/L 3.5-5.0 Sodium 139 mmol/L 135-145 Bilirubin Total 0.8 mg/dL 0.4-1.5 Total Protein 6.4 GM/DL 6.2-8.1 BUN/Creatinine Ratio 12.5 8-20 Creatinine 1.2 mg/dL 0.5-1.4 Laboratory test 10/30/2007 [facility] PSA Screening 2.95 NG/ML 0-4 50 finding [phone] Lipid Profile 02/24/2007 [facility] Cholesterol/HDL 5.03 AVERAGE High 1-4.97 (Trig/Chol/HDL) [phone] Ratio Cholesterol 161 mg/dL Less Than 200 51 Triglyceride 86 mg/dL 40-200 High Density Lipoprotein 32 mg/dL Low 40-60 52 Low Density Lipoprotein 112 mg/dL High Less Than 100 53 Liver Function Panel 02/24/2007 [facility] Albumin/Globulin Ratio 1.6 1-3 [phone] Albumin 4.2 GM/DL 3.6-5.4 Alkaline Phosphatase 69 U/L 39-117 Alt (SGPT) 27 U/L 17-63 Ast (Sgot) 20 U/L 12-42 Bilirubin Direct 0.1 mg/dL 0.1-0.5 Globulin 2.7 GM/DL 2-4 Indirect Bilirubin 0.5 mg/dL 0.1-0.75 Bilirubin Total 0.6 mg/dL 0.4-1.5 Total Protein 6.9 GM/DL 6.2-8.1 Lipid Profile 12/19/2006 [facility] Cholesterol/HDL 6.70 High 1-4.97 (Trig/Chol/HDL) [phone] Ratio AVERAGE Cholesterol 201 mg/dL High Less Than 200 54 Triglyceride 86 mg/dL 40-200 High Density Lipoprotein 30 mg/dL Low 40-60 55 Low Density Lipoprotein 154 mg/dL High Less Than 100 56 Comp Metabolic Panel 12/19/2006 [facility] One Over Creatinine 1.00 [phone] Anion Gap 6.0 mmol/L 2-11 57 Albumin/Globulin Ratio 1.6 1-3 Albumin 3.8 GM/DL 3.6-5.4 Alkaline Phosphatase 61 U/L 39-117 Alt (SGPT) 27 U/L 17-63 Ast (Sgot) 20 U/L 12-42 BUN 18 mg/dL 6-24 Calcium 8.6 mg/dL Low 8.7-10.2 Chloride 102 mmol/L 101-111 Co2 (Carbon Dioxide) 27.0 mmol/L 22-32 Globulin 2.4 GM/DL 2-4 Glucose 87 mg/dL 70-105 Potassium 4.3 mmol/L 3.5-5.0 Sodium 135 mmol/L 135-145 Bilirubin Total 0.7 mg/dL 0.4-1.5 Total Protein 6.2 GM/DL 6.2-8.1 BUN/Creatinine Ratio 18.0 8-20 Creatinine 1.0 mg/dL 0.5-1.4 Laboratory test 12/19/2006 [facility] PSA Screening 2.18 NG/ML 0.01- 4.0 58 finding [phone] Lipid Profile 07/05/2006 [facility] Cholesterol/HDL 4.45 AVERAGE 1- 4.97 59 (Trig/Chol/HDL) [phone] Ratio Cholesterol 147 mg/dL Less Than 200 60 Triglyceride 80 mg/dL 40-200 High Density Lipoprotein 33 mg/dL Low 40-60 61 Low Density Lipoprotein 98 mg/dL Less Than 100 62 Lipid Profile 11/22/2005 [facility] Cholesterol 148 mg/dL Less Than 63 (Trig/Chol/HDL) [phone] 200 Triglyceride 80 mg/dL 40-200 High Density Lipoprotein 35 mg/dL Low 40-60 64 Low Density Lipoprotein 97 mg/dL Less Than 100 65 Cholesterol/HDL Ratio 4.23 AVERAGE 1-4.97 Comp Metabolic Panel 11/22/2005 [facility] Over Creatinine 0.90 [phone] Anion Gap 7.0 mmol/L 2-11 66 Albumin/Globulin Ratio 1.5 1-3 Albumin 4.1 GM/DL 3.6-5.4 Alkaline Phosphatase 91 U/L 39-117 Alt (SGPT) 36 U/L 17-63 Ast (Sgot) 21 U/L 12-42 BUN 14 mg/dL 6-24 Calcium 9.4 mg/dL 8.7-10.2 Chloride 103 mmol/L 101-111 Co2 (Carbon Dioxide) 30.0 mmol/L 22-32 Globulin 2.7 GM/DL 2-4 Glucose 82 mg/dL 70-105 Potassium 4.1 mmol/L 3.5-5.0 Sodium 140 mmol/L 135-145 Bilirubin Total 0.8 mg/dL 0.4-1.5 Total Protein 6.8 GM/DL 6.2-8.1 BUN/Creatinine Ratio 12.7 8-20 Creatinine 1.1 mg/dL 0.5-1.4 Laboratory test finding 11/22/2005 [facility] PSA Screening 3.8 NG/ML 0-4 67 [phone] Basic Metabolic Panel 02/27/2005 [facility] Anion Gap 6.0 mmol/L 2- 11 68 [phone] BUN 16 mg/dL 6-24 Calcium 9.4 mg/dL 8.7-10.2 Chloride 104 mmol/L 101-111 Co2 (Carbon Dioxide) 29.0 mmol/L 22-32 Creatinine 1.2 mg/dL 0.5-1.4 Glucose 90 mg/dL 70-105 Potassium 4.5 mmol/L 3.5-5.0 Sodium 139 mmol/L 135-145 BUN/Creatinine Ratio 13.3 8-20 Lipid Profile 11/16/2004 [facility] Cholesterol 175 mg/dL Less Than 69 (Trig/Chol/HDL) [phone] 200 Triglyceride 122 mg/dL 40-200 High Density Lipoprotein 40 mg/dL 40-60 Low Density Lipoprotein 111 mg/dL High Less Than 100 70 Cholesterol/HDL Ratio 4.38 AVERAGE 1-4.97 Comp Metabolic Panel 11/16/2004 [facility] Anion Gap 3 mmol/L 2-11 71 [phone] Albumin/Globulin Ratio 1.4 1-3 Albumin 4.0 GM/DL 3.6-5.4 Alkaline Phosphatase 92 U/L 39-117 Alt (SGPT) 33 U/L 17-63 Ast (Sgot) 20 U/L 12-42 BUN 9 mg/dL 6-24 Calcium 9.6 mg/dL 8.7-10.2 Chloride 104 mmol/L 101-111 Co2 (Carbon Dioxide) 32 mmol/L 22-32 Creatinine 1.0 mg/dL 0.5-1.4 Globulin 2.8 GM/DL 2-4 Glucose 93 mg/dL 70-105 Potassium 4.5 mmol/L 3.5-5.0 Sodium 139 mmol/L 135-145 Bilirubin Total 0.9 mg/dL 0.4-1.5 Total Protein 6.8 GM/DL 6.2-8.1 BUN/Creatinine Ratio 9.0 8-20 CBC With Electronic 05/17/2004 [facility] White Blood 7.2 CUMM 4.8- 10.8 Diff [phone] Count Abs Basophils 0.1 0-0.2 Abs Eosinophils 0.1 0-0.6 Abs Grans 5.0 1.5-7.7 Abs Lymphs 1.5 1.0-4.8 Abs Mononuclear 0.5 0-0.8 Basophil % 1.1 % 0-2 Hematocrit 47 % 42-52 Hemoglobin 15.7 g/dL 14.0-18.0 Eosinophil % 1.7 % 0-6 Gran % 68.6 % 38-83 Lymph % 21.3 % 20-45 Mean Corpuscular HGB Cone 34 g/dL 32-36 Mean Corpuscular Hemoglob 30 pg 27-31 Mean Corpuscular Volume 89 um3 80-94 Mean Platelet Volume 7.7 um3 7.4-10.4 Mononuclear % 7.3 % 1-9 Platelet Count 272 CUMM 150-450 Red Cell Count 5.28 CUMM 4.6-6.2 Redcell Distribution WDTH 14 % 10.5-15 Comp Metabolic Panel 05/17/2004 [facility] Anion Gap 6.0 mmol/L 2- 11 72 [phone] Albumin/Globulin Ratio 1.6 1-3 Albumin 4.1 GM/DL 3.6-5.4 Alkaline Phosphatase 78 U/L 39-117 Alt (SGPT) 28 U/L 17-63 Ast (Sgot) 20 U/L 12-42 BUN 10 mg/dL 6-24 Calcium 9.3 mg/dL 8.7-10.2 Chloride 105 mmol/L 101-111 Co2 (Carbon Dioxide) 30.0 mmol/L 22-32 Creatinine 1.2 mg/dL 0.5-1.4 Globulin 2.5 GM/DL 2-4 Glucose 86 mg/dL 70-105 Potassium 4.1 mmol/L 3.5-5.0 Sodium 141 mmol/L 135-145 Bilirubin Total 1.1 mg/dL 0.4-1.5 Total Protein 6.6 GM/DL 6.2-8.1 BUN/Creatinine Ratio 8.3 8-20 Lipid Profile 05/17/2004 [facility] Cholesterol/HDL 6.13 High 1-4.97 (Trig/Chol/HDL) [phone] Ratio AVERAGE Cholesterol 190 mg/dL Less Than 200 73 Triglyceride 137 mg/dL 40-200 High Density Lipoprotein 31 mg/dL Low 40-60 74 Low Density Lipoprotein 132 mg/dL High Less Than 100 75 Comp Metabolic Panel 05/16/2004 [facility] Anion Gap 6.0 mmol/L 2- 11 76 [phone] Albumin/Globulin Ratio 1.6 1-3 Albumin 4.1 GM/DL 3.6-5.4 BUN 10 mg/dL 6-24 Calcium 9.3 mg/dL 8.7-10.2 Chloride 105 mmol/L 101-111 Co2 (Carbon Dioxide) 30.0 mmol/L 22-32 Creatinine 1.2 mg/dL 0.5-1.4 Globulin 2.5 GM/DL 2-4 Glucose 86 mg/dL 70-105 Potassium 4.1 mmol/L 3.5-5.0 Sodium 141 mmol/L 135-145 Total Protein 6.6 GM/DL 6.2-8.1 BUN/Creatinine Ratio 8.3 8-20 CBC With Electronic 01/26/2004 [facility] Platelet Count 278 CUMM 150-450 Diff [phone] White Blood Count 9.2 CUMM 4.8-10.8 Abs Basophils 0.2 0-0.2 Abs Eosinophils 0.2 0-0.6 Abs Grans 6.6 1.5-7.7 Abs Lymphs 1.5 1.0-4.8 Abs Mononuclear 0.6 0-0.8 Hematocrit 44 % 42-52 Hemoglobin 15.7 g/dL 14.0-18.0 Eosinophil % 2.0 % 0-6 Mean Corpuscular HGB Cone 36 g/dL 32-36 Mean Corpuscular Hemoglob 31 pg 27-31 Mean Corpuscular Volume 88 um3 80-94 Mean Platelet Volume 7.1 um3 Low 7.4-10.4 Red Cell Count 4.98 CUMM 4.6-6.2 Redcell Distribution WDTH 13 % 10.5-15 Gran % 72.1 % 38-83 Lymph % 16.9 % Low 20-45 Mononuclear % 6.7 % 1-9 Lipid Profile 01/26/2004 [facility] Cholesterol/HDL 7.06 High 1-4.97 (Trig/Chol/HDL) [phone] Ratio AVERAGE Cholesterol 240 mg/dL High Less Than 200 77 Triglyceride 128 mg/dL 40-200 High Density Lipoprotein 34 mg/dL Low 40-60 78 Low Density Lipoprotein 180 mg/dL High Less Than 100 79 Comp Metabolic Panel 01/26/2004 [facility] Anion Gap 7.0 mmol/L 2- 11 80 [phone] Albumin/Globulin Ratio 1.4 1-3 Albumin 4.1 GM/DL 3.6-5.4 BUN 12 mg/dL 6-24 Calcium 9.4 mg/dL 8.7-10.2 Chloride 103 mmol/L 101-111 Co2 (Carbon Dioxide) 29.0 mmol/L 22-32 Creatinine 1.2 mg/dL 0.5-1.4 Globulin 2.9 GM/DL 2-4 Glucose 84 mg/dL 70-105 Potassium 4.4 mmol/L 3.5-5.0 Sodium 139 mmol/L 135-145 Total Protein 7.0 GM/DL 6.2-8.1 BUN/Creatinine Ratio 10.0 8-20 Alkaline Phosphatase 84 U/L 39-117 Alt (SGPT) 28 U/L 17-63 Ast (Sgot) 22 U/L 12-42 Bilirubin Total 1.1 mg/dL 0.4-1.5 CBC With Manual Diff 01/26/2004 [facility] RBC Morphology NORMAL [phone] Eosenophil 2 % 0-6 Lymphocyte 12 % 5-47 Monocyte 8 % 0-13 Polysegmented Neutrophil 78 % 38-83 1 Because ethnic data is not always readily [...] 15-29 5 Kidney failure <15 (or dialysis) 2 Because ethnic data is not always readily [...] 15-29 5 Kidney failure <15 (or dialysis) 3 SEE RESULT BELOW Name: KATHY CALVO : [address]: Bladimir Sousa MD Acct: [id number] Unit: [id number] AGE: 60 Location: ENDO Re08/14/16 SEX: M Status: REG REF SPEC: [id number] RJ: 08/14/16-10[address] [facility] [address]: Bladimir Sousa MD REQ: [id number] RECD: 08/14/165031 STATUS: SUNSHINE RAMOS DR: Roberto Lane MD _ ORDERED: LEVEL IV/2 FINAL DIAGNOSIS 1. Colon, transverse, biopsy: -- Inflammatory (juvenile) polyp. 2. Colon, sigmoid, biopsy: -- Hyperplastic polyp. CLINICAL HISTORY Second colonoscopy; negative family history POST-OPERATIVE DIAGNOSIS Colonoscopy to cecum - loopy as expected - 4 mm transverse and 2 mm sigmoid lesions. Conclusions/Plan: Polyps - 5 years GROSS DESCRIPTION 1. The specimen is received in formalin labeled, Transverse Colon Polyp, and consists of a 0.4 x 0.3 x 0.3 cm, blake-white, polypoid, soft tissue fragment, which is submitted entirely in one cassette. 2. The specimen is received in formalin labeled, Biopsy Sigmoid Nodule, and consists of a 0.3 x 0.2 x 0.1 cm, blake-pink, irregular, soft tissue fragment, which is submitted entirely in one cassette. Signed (signature on file) January Rhodes MD 1008 END OF REPORT * ML=Testing performed at Main Lab DEPARTMENT OF PATHOLOGY, [address] [place] [address] Dakota Licea M.D. Director [facility] # [id number] 4 Because ethnic data is not always readily [...] 15-29 5 Kidney failure <15 (or dialysis) 5 calcified body in popliteal fossa right knee 6 Desirable <150 Borderline high 150-199 High 200-499 Very High >500 7 Desirable <200 Borderline high 200-239 High >239 8 Low <40 Desirable: 40-60 High: >60 9 Desirable <100 Near Optimal 100-129 Borderline high 130-159 High 160-189 Very High >189 10 FASTING 11 Because ethnic data is not always readily [...] 15-29 5 Kidney failure <15 (or dialysis) 12 HDL Interpretation: Undesirable: High Risk: Less than 40 mg/dL Desirable: Low Risk: Greater than 60 mg/dL 13 LDL Interpretation: Low Risk Optimal Level: LDL Less than 100 mg/dL Near or Above Optimal: LDL 100-129 mg/dL Borderline High Risk: LDL 130-159 mg/dL High Risk: LDL 160-189 mg/dL Very High Risk: LDL Greater than 189 mg/dL 14 Testing performed by [facility]. 15 Testing performed by Liquid Chromatography-Tandem Mass Spectrometry (LC-MS/MS). Test Performed by: [facility] [address] [address] [employer]: Imtiaz Starr III, M.D. 16 Anion gap measurement may be of limited value in the presence of any alkalosis, especially in a combined acid base disorder. . 17 Because ethnic data is not always readily [...] 15-29 5 Kidney failure <15 (or dialysis) 18 RUN DATE: 12/02/11 [facility] NMI LIVE PAGE 1 RUN TIME: 1224 Specimen Inquiry RUN USER: INTERFACE Name: KATHY CALVO Accnick#: [id number] Status: REG REF Re11/30/11 Age/Sex: 56/M Unit#: [id number] Location: [facility] : 53 SPEC #: [id number] RJ: 11/30/11 STATUS: COMP REQ #: [id number] RECD: 11/30/[address] [facility] [address]: Lennox LOWE,Lane Hameed SOURCE: NASOPHARYN ENTR: 11/30/[address]: URBANO: ORDERED: PERTUSSIS [place] COMMENTS: NO ANTIBIOTICS QUERIES: MEDENT REQUISITION # [id number] Procedure Result Verified Site > BORDETELLA PERTUSSIS Final 12/02/111223 ML BORDETELLA BY RAPID PCR Negative for Bordetella pertussis/parapertussis DNA Laboratory developed test. Test performed by: [employer] [place], [place] [address] - [facility] State Permit #[id number] [address] [place] [address] DEPARTMENT OF PATHOLOGY, [address] [place] [address] [facility] Permit #[id number] Dakota Licea M.D. Director Ashleigh Raines M.D. Ends Breakage Clerk 19 Neutrophilia % Lymphopenia % 20 Recommended INR for Patients on Oral Anticoagulants Prophylaxis 2.0 - 3.0 Treatment of thrombosis 2.0 - 3.0 Prevention of embolism 2.0 - 3.0 Prevention of embolism from prosthetic heart valves 2.5 - 3.5 21 DIAGNOSIS,TREATMENT,AND THERAPY MUST BE BASED ON THE INR VALUE ALONE. 22 Anion gap measurement may be of limited value in the presence of any alkalosis, especially in a combined acid base disorder. . 23 A metabolite of Naproxen, O-desmethylnaproxen, has been shown to interfere with the [employer]man method for measuring total bilirubin. Samples from patients who have taken Naproxen have shown spurious elevation in total bilirubin levels. 24 Because ethnic data is not always readily [...] 15-29 5 Kidney failure <15 (or dialysis) 25 Anion gap measurement may be of limited value in the presence of any alkalosis, especially in a combined acid base disorder. . 26 Note change in reference range as of 07/15/08. The change was based on recommendations from the [employer]. 27 Please note change in reference range effective 08 . 28 Because ethnic data is not always readily [...] 15-29 5 Kidney failure <15 (or dialysis) 29 No sig change c/w 02/13/01 30 Anion gap measurement may be of limited value in the presence of any alkalosis, especially in a combined acid base disorder. . 31 Note change in reference range as of 07/15/08. The change was based on recommendations from the [employer]. 32 Please note change in reference range effective 08 . 33 Because ethnic data is not always readily [...] 15-29 5 Kidney failure <15 (or dialysis) 34 CHOLESTEROL INTERPRETATION: Desirable: Less than 200 MG/DL Borderline-High Risk: 200-239 MG/DL High-Risk: 240 MG/DL and over 35 HDL INTERPRETATION: Undesirable: High Risk: Less than 40 MG/DL Desirable: Low Risk: Greater than 60 MG/DL 36 LDL INTERPRETATION: Low Risk Optimal Level: LDL Less than 100 MG/DL Near or Above Optimal: LDL 100-129 MG/DL Borderline High Risk: LDL 130-159 MG/DL High Risk: LDL 160-189 MG/DL Very High Risk: LDL Greater than 189 MG/DL 37 Anion gap measurement may be of limited value in the presence of any alkalosis, especially in a combined acid base disorder. . 38 Note change in reference range as of 07/15/08. The change was based on recommendations from the [employer]. 39 Please note change in reference range effective 08 . 40 CHOLESTEROL INTERPRETATION: Desirable: Less than 200 MG/DL Borderline-High Risk: 200-239 MG/DL High-Risk: 240 MG/DL and over 41 HDL INTERPRETATION: Undesirable: High Risk: Less than 40 MG/DL Desirable: Low Risk: Greater than 60 MG/DL 42 LDL INTERPRETATION: Low Risk Optimal Level: LDL Less than 100 MG/DL Near or Above Optimal: LDL 100-129 MG/DL Borderline High Risk: LDL 130-159 MG/DL High Risk: LDL 160-189 MG/DL Very High Risk: LDL Greater than 189 MG/DL 43 Classification: Desirable . 44 Classification: Low . 45 CALCULATED LDL APPROXIMATES THE VALUE OF A DIRECT LDL MEASUREMENT. Classification: Near or above optimal . 46 Classification: High . 47 Classification: Low . 48 CALCULATED LDL APPROXIMATES THE VALUE OF A DIRECT LDL MEASUREMENT. Classification: High . 49 Anion gap measurement may be of limited value in the presence of any alkalosis, especially in a combined acid base disorder. . 50 * SERUM LEVELS OF PSA MEASURED USING THE [employer] ACCESS HYBRITECH IMMUNOASSAY SHOULD NOT BE INTERPRETED ABSOLUTE EVIDENCE OF THE PRESENCE OR ABSENCE OF DISEASE. THE PSA VALUE SHOULD BE USED IN CONJUNCTION WITH OTHER PERTINENT CLINICAL DIAGNOSTIC PROCEDURES. 51 Classification: Desirable . 52 Classification: Low . 53 CALCULATED LDL APPROXIMATES THE VALUE OF A DIRECT LDL MEASUREMENT. Classification: Near or above optimal . 54 Classification: Borderline High . 55 Classification: Low . 56 CALCULATED LDL APPROXIMATES THE VALUE OF A DIRECT LDL MEASUREMENT. Classification: Borderline High . 57 Anion gap measurement may be of limited value in the presence of any alkalosis, especially in a combined acid base disorder. . 58 * SERUM LEVELS OF PSA MEASURED USING THE [employer] ACCESS HYBRITECH IMMUNOASSAY SHOULD NOT BE INTERPRETED ABSOLUTE EVIDENCE OF THE PRESENCE OR ABSENCE OF DISEASE. THE PSA VALUE SHOULD BE USED IN CONJUNCTION WITH OTHER PERTINENT CLINICAL DIAGNOSTIC PROCEDURES. 59 FASTING 60 Classification: Desirable . 61 Classification: Low . 62 CALCULATED LDL APPROXIMATES THE VALUE OF A DIRECT LDL MEASUREMENT. Classification: Optimal Level . 63 Classification: Desirable . 64 Classification: Low . 65 CALCULATED LDL APPROXIMATES THE VALUE OF A DIRECT LDL MEASUREMENT. Classification: Optimal Level . 66 Anion gap measurement may be of limited value in the presence of any alkalosis, especially in a combined acid base disorder. . 67 * SERUM LEVELS OF PSA MEASURED USING THE [employer] ACCESS HYBRITECH IMMUNOASSAY SHOULD NOT BE INTERPRETED ABSOLUTE EVIDENCE OF THE PRESENCE OR ABSENCE OF DISEASE. THE PSA VALUE SHOULD BE USED IN CONJUNCTION WITH OTHER PERTINENT CLINICAL DIAGNOSTIC PROCEDURES. 68 Anion gap measurement may be of limited value in the presence of any alkalosis, especially in a combined acid base disorder. . 69 Classification: Desirable . 70 CALCULATED LDL APPROXIMATES THE VALUE OF A DIRECT LDL MEASUREMENT. Classification: Near or above optimal . 71 Anion gap measurement may be of limited value in the presence of any alkalosis, especially in a combined acid base disorder. . 72 Anion gap measurement may be of limited value in the presence of any alkalosis, especially in a combined acid base disorder. . 73 Classification: Desirable . 74 Classification: Low . 75 CALCULATED LDL APPROXIMATES THE VALUE OF A DIRECT LDL MEASUREMENT. Classification: Borderline High . 76 Anion gap measurement may be of limited value in the presence of any alkalosis, especially in a combined acid base disorder. . 77 Classification: High . 78 Classification: Low . 79 CALCULATED LDL APPROXIMATES THE VALUE OF A DIRECT LDL MEASUREMENT. Classification: High . 80 Anion gap measurement may be of limited value in the presence of any alkalosis, especially in a combined acid base disorder. . Procedures Date Code Description Status 09/17/2018 67650 X-Ray Chest 2 V Completed 07/09/2018 30034 Electrocardiogram Complete Completed 01/08/2018 08882 Brief Emotional/Behav Assessment W/ Scoring Doc Per Completed Standard Inst 08/06/2017 46972 Remove Impact Cerumen Requiring Instrument, Unilateral Completed 06/12/2017 33670 Electrocardiogram Complete Completed 01/23/2017 96084 Oximetry, Multiple Determinations (Eg, During Exercise) Completed 01/23/2017 16197 Bronchospasm Evaluation Pre & Post Completed 07/26/2016 [id number] Colonoscopy Completed 03/28/2015 51480 Inject/Drain Joint/Bursa Major Completed 03/02/2015 51800 Electrocardiogram Complete Completed 01/27/2015 65269 X-Ray Knee,Ap&Lateral Oblique Views Completed 08/03/2013 71639 Electrocardiogram Complete Completed 03/11/2013 31526 Oximetry, Multiple Determinations (Eg, During Exercise) Completed 03/11/2013 18714 Bronchospasm Evaluation Pre & Post Completed 03/11/2013 38998 Electrocardiogram Complete Completed 03/11/2013 64226 X-Ray Chest Two Views Completed 08/01/2012 30389 Electrocardiogram Complete Completed 11/30/2011 45958 X-Ray Chest Two Views Completed 01/17/2011 46090 Electrocardiogram Complete Completed 04/28/2010 62558 Tympanometry Completed 04/28/2010 32660 X-Ray Chest Two Views Completed 12/30/2009 96609 X-Ray Knee, Complete Completed 03/16/2009 73917 Electrocardiogram Complete Completed 11/05/2007 31492 Remove Impact Cerumen Requiring Instrument, Unilateral Completed 10/01/2005 28491 X-Ray Ankle Three Views Completed 11/21/2004 18067 Electrocardiogram Complete Completed 05/19/2004 74113 Electrocardiogram Complete Completed Encounters Type Date Location Provider Dx Diagnosis Office Visit 09/17/[address], [id number] Encounter for other 10:15a Dari preprocedural examination M17.0 Bilateral primary osteoarthritis of knee M25.561 Pain in right knee I10 Essential (primary) hypertension K42.9 Umbilical hernia without obstruction or gangrene M62.00 Separation of muscle (nontraumatic), unspecified site Office Visit 07/09/2018 9:00a Main Office [address] I10 Essential (primary) M.DIrma hypertension M17.0 Bilateral primary osteoarthritis of knee Z23 Encounter for immunization Z79.899 [facility] (current[facility] drug therapy Office Visit 01/08/2018 10:30a Main Office [address] I10 Essential (primary) M.D. hypertension M79.671 Pain in right foot M76.61 Achilles tendinitis, right leg Z13.89 Encounter for screening for other disorder M17.0 Bilateral primary osteoarthritis of knee Z68.42 Body mass index (BMI) 45.0-49.9, adult Office Visit 08/06/2017 4:20p Main Office Ashley Ríos, Kaila R05 Cough J06.9 Acute upper respiratory infection, unspecified H61.23 Impacted cerumen, bilateral Office Visit 06/12/2017 8:30a Main Office [address] I10 Essential (primary) M.D. 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 R05 Cough E66.09 Other obesity due to excess calories I10 Essential (primary) hypertension Z68.41 Body mass index (BMI) 40.0-44.9, adult Office Visit 12/20/2016 2:00p [address] Office [address] Porter M.D. R05 Cough G47.00 Insomnia, unspecified Office Visit 02/29/2016 11:15a Main Office [address] J45.991 Cough variant M.D. asthma E66.09 Other obesity due to excess calories Z68.42 Body mass index (BMI) 45.0-49.9, adult Office Visit 09/29/2015 11:20a Main Office Pascale, J01.10 Acute frontal Letty, RPA-C sinusitis, unspecified R05 Cough Office Visit 08/31/2015 8:55a Main Office [address], I10 Essential (primary) M.D. hypertension Office Visit 06/13/2015 10:45a Main Office Durga Omer, 719.46 Pain Joint Lower D.O. Leg Office Visit 03/28/2015 11:30a Main Office Durga Omer, 719.46 Pain Joint Lower D.O. Leg 715.16 Osteoarthrosis Localized Prim Lower Leg 278.00 Obesity Unspec Office Visit 03/02/2015 8:45a Main Office [address], 401.1 Hypertension Benign M.DIrma 719.46 Pain Joint Lower Leg 715.16 Osteoarthrosis Localized Prim Lower Leg Office Visit 01/27/2015 1:30p Main Office Durga Omer, 715.16 Osteoarthrosis D.O. Localized Prim Lower Leg Office Visit 12/15/2014 2:30p Main Office Durga Omer, 786.2 Cough D.O. 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 & Tarsus Other 719.46 Pain Joint Lower Leg Office Visit 02/26/2014 4:30p Main Office [address], 401.1 Hypertension Benign Dari 272.8 Lipoid Metabolism Disorders Other 278.00 Obesity Unspec Office Visit 10/07/2013 8:45a Main Office [address], 401.1 Hypertension Benign M.DIrma 786.2 Cough 782.3 Edema Office Visit 03/11/2013 11:30a Main Office Domingo 786.09 Dyspnea & Dari Mejia Respiratory Abnormalities Other 786.2 Cough 401.1 Hypertension Benign 272.8 Lipoid Metabolism Disorders Other 278.00 Obesity Unspec Office Visit 11/14/2012 8:55a Main Office [address], 401.1 Hypertension Benign MIrmaDIrma 786.2 Cough Office Visit 10/13/2012 1:45p Main Office [address] M.D. 786.2 Cough 401.1 Hypertension Benign Office Visit 09/08/2012 12:55p Main Office [address], 922.1 Contusion Chest Wall M.D. Office Visit 08/01/2012 11:15a Main Office [address], 401.1 Hypertension Benign JasbirDIrma 786.2 Cough 272.8 Lipoid Metabolism Disorders Other 607.84 Impotence Organic Origin 278.00 Obesity Unspec V75.9 Screening Examination Infectious Disease Unspec Office Visit 11/30/2011 8:55a [address] Porter M.D. 786.2 Cough V65.49 Counseling Other Spec V06.1 Hqjlfuafsr-Ewnlloa-Shmtlysx Combined (DTaP) V04.81 Need For Prophylactic Vaccination & Inoculation/Influenza V07.2 Prophylactic Immunotherapy 466.0 Bronchitis Acute V74.8 Screening Examination Bacterial & Spirochetal Other Office Visit 02/14/2011 3:00p Main Office [address], 607.9 Penis Disorder M.DIrma Unspec Office Visit 01/17/2011 8:55a Main Office [address], 401.1 Hypertension Benign M.DIrma 719.46 Pain Joint Lower Leg 607.84 Impotence Organic Origin 278.00 Obesity Unspec 272.8 Lipoid Metabolism Disorders Other Office Visit 07/17/2010 9:15a Main Office [address], 401.1 Hypertension Benign M.DIrma 272.8 Lipoid Metabolism Disorders Other Office Visit 05/15/2010 4:00p Main Office [address], 381.81 Eustachian Tube M.DIrma Dysfunction 381.4 Otitis Media Acute Or Chronic Nonsuppurative Office Visit 04/28/2010 3:00p Main Office [address] M.D. 786.2 Cough 381.4 Otitis Media Acute Or Chronic Nonsuppurative 372.00 Conjunctivitis Acute Unspec Office Visit 04/26/2010 11:30a Main Office Domingo 381.4 Otitis Media Acute Or Dari Mejia Chronic Nonsuppurative 372.00 Conjunctivitis Acute Unspec 465.9 URI Upper Respiratory Infections Acute Unspec Sites 786.2 Cough Office Visit 03/17/2010 9:45a Main Office [address], 401.1 Hypertension Benign M.DIrma 272.8 Lipoid Metabolism Disorders Other 719.46 Pain Joint Lower Leg V76.44 Screening For Malig Bernard Prostate 607.84 Impotence Organic Origin V70.0 Examination General Medical Routine AT Health Care Facility Office Visit 12/30/2009 2:20p Main Office Ashley Ríos 719.46 Pain Joint Lower Leg P.A. 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 719.46 Pain Joint Lower Leg Office Visit 12/10/2007 11:10a Main Office klepamichelle 272.2 Hyperlipidemia Mixed Office Visit 11/05/2007 10:00a Main Office klepack V70.0 Examination General Medical Routine AT Health Care Facility 401.1 Hypertension Benign 272.2 Hyperlipidemia Mixed 380.4 Impacted Cerumen Office Visit 12/26/2006 8:55a Main Office klepack 401.1 Hypertension Benign 272.2 Hyperlipidemia Mixed Office Visit 11/07/2006 4:30p Main Office klepack 401.1 Hypertension Benign 272.2 Hyperlipidemia Mixed 784.7 Epistaxis Office Visit 07/10/2006 8:55a Main Office klepack 728.71 Fibromatosis Plantar Fascia 401.1 Hypertension Benign 272.2 Hyperlipidemia Mixed V76.44 Screening For Malig Bernard Prostate 278.00 Obesity Unspec Office Visit 05/09/2006 2:15p Main Office klepack 728.71 Fibromatosis Plantar Fascia Office Visit 11/29/2005 8:55a Main Office klepack 401.1 Hypertension Benign 272.2 Hyperlipidemia Mixed V76.51 Special Screening For Malignant Neoplasms Colon 477.9 Rhinitis Allergic Cause Unspec Office Visit 10/01/2005 11:00a Main Office klepack 719.47 Pain Joint Ankle & Foot Office Visit 08/17/2005 4:00p Main Office klepack 388.70 Otalgia & Earache Unspec 401.1 Hypertension Benign 272.2 Hyperlipidemia Mixed V76.44 Screening For Malig Bernard Prostate Office Visit 07/27/2005 3:00p Main Office lennox 388.70 Otalgia & Earache Unspec Office Visit 07/14/2005 11:30a Main Office Domingo 381.00 Otitis Media Dari Mejia Nonsuppurative Acute Unspec 380.22 Otitis Externa Other Acute Office Visit 03/01/2005 8:55a Main Office lennox 272.2 Hyperlipidemia Mixed 401.1 Hypertension Benign Office Visit 11/21/2004 2:30p Main Office Ephraim Rios 272.2 Hyperlipidemia Mixed M.D. 401.1 Hypertension Benign V77.1 Screening Diabetes Mellitus 780.57 Unspecified Sleep Apnea 278.01 Obesity Morbid V76.51 Special Screening For Malignant Neoplasms Colon Office Visit 05/19/2004 4:00p Main Office Ephraim Rios 272.2 Hyperlipidemia Mixed M.D. 401.1 Hypertension Benign 698.0 Pruritus Ani Office Visit 02/02/2004 2:00p Main Office Ephraim Rios 272.2 Hyperlipidemia Mixed M.D. 401.1 Hypertension Benign 466.0 Bronchitis Acute Office Visit 01/19/2004 1:00p Main Office Ephraim Rios, V77.1 Screening Diabetes M.D. 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 at Main Jtorgj1109/17/2018 - Roberto Lane M.D.Z01.818 Encounter for other preprocedural examinationComments:~B_Pt is medically stable and w/o overt signs or symptoms concerning for coronary disease. He is capable of exerting himself to 4 METs without CP or SOB. He may proceed with the planned surgery withoutneed for further cardiac testing. Will get labs drawn today. He was advised to take last dose of aspirin on 09/24.~b_M17.0 Bilateral primary osteoarthritis of kneeM25.561 Pain in right kneeI10 Essential (primary) hypertensionComments:BP is high today. He will resume home monitoring and call us back within a week with an update.Follow up:Take last dose of aspirin on then stop taking it until after surgery. Your most recent blood pressure reading in our office was high. In an effort to improve our understanding of your blood pressure and help to decide if (further) treatment is needed, please check your blood pressure at home in the next few days then get back in touch with us via phone ([phone]) or our portal to let us know what your reading was.K42.9 Umbilical hernia without obstruction or gangreneComments:small, asymptomatic umbilical hernia. Will observe. Counseled re need to report episodes of painM62.00 Separation of muscle (nontraumatic), unspecified site
--- OUTSIDE RECORDS SUMMARY | 2018-10-02 13:09 | XMS REPORT ---
:1955 External Reference #:[id number] Author Organization [employer] Address [address] [place] [address] [place] [address] Phone [phone] Care Team Providers Name Role Phone Roberto Lane MD Primary Care Physician Unavailable Payers Type Date Identification Numbers Payment Provider Subscriber Commercial Effective: Policy Number: [id number] [employer] Hu Calvo 2012 Group Number: [id number] [id number] Group Name: [id number] [place] [address] PayID: [id number] Problems Date Description Provider Status Onset: 03/07/2018 Localized, primary osteoarthritis Mary Tan M.D. 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 [facility],For Intra-Articula r Inj Per Dose Hyaluron Or Administered Injection Mary Derivative,Ort 018 [facility]-Articula r Inj Per Dose Hyaluron Or Administered Injection Mary Derivative,Ort 018 Dari Tan hilayr,For Intra-Articula r Inj Per Dose Hyaluron Or [...] Test Date Test Result H/L Range Note CBC Auto Diff 09/17/2018 White Blood Count [...] Egfr Non- 75.2 >60 Egfr 91.0 >60 1 1 Because ethnic data is not always [...] dialysis) Procedures Date CPT Code Description Status 07/30/201857324 Inject/Drain Joint/Bursa Major W/O US Completed 07/18/2018 Inject/Drain Joint/Bursa Major W/O US Completed 07/11/201814497 Inject/Drain Joint/Bursa Major W/O US Completed 03/07/201891064 Inject/Drain Joint/Bursa Major W/O US Completed 01/28/2017 68834 Bronchospasm Provocation Evalu Completed 06/26/2013 51498 Stress Test Completed Encounters Type Date Location Provider CPT E/M Dx Office Visit 08/18/2018 2:45p [facility] M.D. 76838 M17.0 [facility] M25.461 M25.561 Office Visit 06/06/2018 8:15a [facility] M.D. 62385 M17.0 [facility] M25.461 M25.462 M25.562 M25.561 Office Visit 03/07/2018 8:00a [facility] M.D. 33881 M25.561 [facility] M25.562 M25.461 M25.462 M17.0 Office Visit 11/14/2011 9:00a [facility], 05307 805.4 Taye Chapin Office Visit 10/15/2011 9:00a [facility] 43157 805.4 Taye Chapin Office Visit 08/13/2011 9:45a [facility], 62051 805.4 Taye Chapin Office Visit 06/15/2011 9:30a [facility], 90498 805.4 Taye Chapin Office Visit 05/10/2011 1:00p [facility], 23006 805.4 Taye Chapin Office Visit 04/09/2011 1:30p [facility], 16693 805.4 Taye Chapin Plan of Care Future Appointment(s):10/15/2018 9:15 am - Mary Tan M[facility]10/02/2018 1:30 pm - Mary Tan M.D. at [facility]09/19/2018 - Mary Tan M.D.M25.461 Effusion, right kneeFollow up:Follow up: 2 weeks after rppjqarX41.561 Pain in right kneeM17.0 Bilateral primary osteoarthritis of knee
[2018-10-02] MEDS ORDERED: fentaNYL* 50 MCG/ML 2 ML VIAL (100 MCG VIAL) ONE (13:11)
[2018-10-02] MEDS ORDERED: Midazolam* 1 MG/ML 2 ML VIAL (2 MG) ONE ×2 (13:11→14:58)
[2018-10-02] MEDS ORDERED: ceFAZolin 2 GM PREMIX in ORs 2 GM/50 ML BAG IVPB ONE (13:18)
[2018-10-02] MEDS ORDERED: Lidocaine 1%* 5 ML VIAL ONE (14:22)
[2018-10-02] MEDS ORDERED: ROPIVACAINE 5 MG/ML 30 ML BTL (0.5%) ONE (14:24)
[2018-10-02] MEDS ORDERED: HYDROmorphone INJ1* 1 MG/ML SYRINGE ONE (14:45)
[2018-10-02] MEDS ORDERED: Bupivacaine 0.5% SDV PF* 30ML VIAL ONE ×2 (14:49→17:37)
[2018-10-02] MEDS ORDERED: Lidocaine 2% PF * 5 ML VIAL ONE (16:55)
[2018-10-02] MEDS ORDERED: Phenylephrine IV* 40 MCG/ML 10 ML SYRINGE ONE (16:55)
[2018-10-02] MEDS ORDERED: Phenylephrine INJ* 10 MG/ML 1 ML VIAL (10 MG) ONE (16:55)
[2018-10-02] MEDS ORDERED: Propofol* 10 MG/ML 20 ML BTL IV PUSH ONE (16:56)
[2018-10-02] MEDS ORDERED: Glycopyrrolate IV* 0.2 MG/ML 1 ML VIAL ONE (16:56)
[2018-10-02] MEDS ORDERED: Naloxone* 0.4 MG/ML 1 ML VIAL IV PRN (17:02)
[2018-10-02] MEDS ORDERED: PROCHLORPERAZINE INJ 5 MG/ML 2 ML VIAL IV PRN (17:02)
[2018-10-02] MEDS ORDERED: fentaNYL* 50 MCG/ML 2 ML VIAL (100 MCG VIAL) IV PRN (17:02)
[2018-10-02] MEDS ORDERED: Acetaminophen IV 1GM/100ML * 1,000 MG/100 ML VIAL IVPB ONE (17:02)
[2018-10-02] MEDS ORDERED: Ketorolac INJ* 30 MG/ML 1 ML VIAL IV PRN (17:02)
[2018-10-02] MEDS ORDERED: oxyCODONE TAB* 5 MG TAB PO PRN (17:02)
[2018-10-02] MEDS ORDERED: Ondansetron INJ* 2 MG/ML VIAL IV PRN ×2 (17:02→18:01)
[2018-10-02] MEDS ORDERED: DiMENhydriNATE IV* 50 MG/ML VIAL IV PUSH PRN (17:02)
[2018-10-02] MEDS ORDERED: Morphine VIAL* 4 MG/ML VIAL (1 ml vial) IV PRN (17:02)
[2018-10-02] MEDS ORDERED: Acetaminophen TAB* 325 MG PO PRN (18:01)
[2018-10-02] MEDS ORDERED: oxyCODONE/Acetamin 5/325 MG* TAB PO PRN (18:01)
[2018-10-02] MEDS ORDERED: Bisacodyl SUPP* 10 MG SUPP PR PRN (18:01)
[2018-10-02] MEDS ORDERED: Magnesium Hydroxide LIQ* 30 ML UDC PO PRN (18:01)
[2018-10-02] MEDS ORDERED: diPHENhydraMINE IV* 50 MG/ML 1 ml VIAL (BENADRYL) IV PRN (18:01)
[2018-10-02] MEDS ORDERED: Cyclobenzaprine TAB* 10 MG PO PRN (18:01)
[2018-10-02] MEDS ORDERED: Atenolol TAB* 50 MG PO SCH (21:00)
[2018-10-02] MEDS: Magnesium Hydroxide LIQ* 30 ML UDC PO SCH (21:39)
[2018-10-02] MEDS: Docusate CAP* 100 MG PO SCH (21:39)
[2018-10-02] MEDS: oxyCODONE TAB* 5 MG TAB PO PRN (21:43)
[2018-10-02] MEDS ORDERED: Warfarin TAB(*) 6 MG PO ONE (22:00)
--- NOTE | 2018-10-02 22:12 | CONS ---
CONSULTATIONS REPORT: DATE OF CONSULT: 10/02/18 CONSULTING PROVIDER: Salo Young MD CONSULT REQUESTING SERVICE: Orthopedics (Mary Tan MD). REASON FOR CONSULT: Management of hypertension in the setting of right total knee arthroplasty. HISTORY OF PRESENT ILLNESS: Hu Calvo is a 63-year-old male with past medical history of hypertension, morbid obesity (BMI of 45), hyperlipidemia, bilateral knee osteoarthritis, who has failed conservative treatment and has presented for elective right total knee arthroplasty with Dr. Tan, date of admission, 10/02/18. He is recovering well in the PACU and medicine service was consulted for management of high blood pressure. He is taking atenolol 50 mg daily and hydrochlorothiazide 25 mg daily. He has done so for the past 7 years. He does not check his blood pressure at home. He does get short of breath with a few stairs, but not walking on flat ground. He denies any orthopnea or paroxysmal nocturnal dyspnea or lower extremity edema. Preoperative EKG on 09/19/18, he demonstrated Q-waves inferiorly in 3 and AVF and poor R-wave progression. His last LDL was 170 back in 2013. He has previously used statins for about 3 years, but eventually had difficulties "his legs stopped working" and never a smoker. Has a family history of heart disease in both parents at the age of 68 and 80 respectively in mother and father. He is a never smoker. PAST MEDICAL HISTORY: Hypertension, morbid obesity, bilateral osteoarthritis of the knees, hyperlipidemia, and statin intolerance. PAST SURGICAL HISTORY: Undescended testicle as a child. ALLERGIES: IBUPROFEN causes skin blemishes and he has been intolerant of statins. FAMILY HISTORY: Mother at age 91, had a heart attack at age 80. His father at age 77 of suicide, had a heart attack at age 68. 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 He drinks one beer about 1 or 2 times a month. He is a never smoker. No drug use. Medical surrogate is his , Isabel Calvo. REVIEW OF SYSTEMS: Complete 14-point review of systems negative except as per HPI. He denies headaches, nausea, vomiting, abdominal pains, skin rashes, weakness, slurred speech, palpitations. PHYSICAL EXAM: General Appearance: No acute distress, lying in the hospital bed. Vital Signs: Temperature 97.3; heart rate 69; respiratory rate 15; satting 97% on room air; blood pressure 118/73 currently, previously was as high as 180/86 prior to the surgery. HEENT: Normocephalic, atraumatic. Pupils are equal, round, and reactive to light. Extra-ocular motions are intact. No scleral icterus. Moist mucous membranes. Neck: Supple. No cervical lymphadenopathy. Lungs: Anteriorly clear to auscultation bilaterally with no wheezing, rales, or rhonchi. Cardiovascular: Regular rate and rhythm. No murmurs, rubs, or gallops. Abdomen: Soft, nontender, obese, nondistended otherwise. Extremities: Warm, well perfused. No peripheral edema. Right knee in a cooling brace. Skin: No lesions or rashes. Neuro: Cranial nerves II through XII intact. Neurology Tech strength intact bilaterally. Moving all extremities. DIAGNOSTIC STUDIES/LAB DATA: None recently. Creatinine on 09/17/18 was 1.00, glucose of 88. No A1c in the system. IMAGING: None. 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 Medicine service was consulted for: Hypertension. He was hypertensive before the surgery, but in the setting of possible anesthesia, he is now normotensive. Recommend restarting his atenolol and hydrochlorothiazide tomorrow morning and the patient should follow up with his primary care provider to address his cardiac comorbidities including his hyperlipidemia, morbid obesity, and family history of heart disease including sedentary lifestyle, lack of exercise, consideration for repeat lipid panel and hemoglobin A1c. He is getting transition to warfarin for DVT prophylaxis, currently on Lovenox 40 mg daily. Continue the bowel regimen. He is getting pain control with oxymorphone IV along with oxycodone p.r.n. He is a full code. Thank you for this interesting consult. We will continue to follow along. [id number]/CPS #: [id number] MTDD
[2018-10-02] MEDS: Morphine VIAL* 4 MG/ML VIAL (1 ml vial) IV PRN (23:07)
[2018-10-02] MEDS: ceFAZolin 1 GM in Dextrose (*) 1 GM/50 ML BAG IVPB SCH (23:58)
[2018-10-03] MEDS: oxyCODONE/Acetamin 5/325 MG* TAB PO PRN ×5 (00:04→23:58)
[2018-10-03] MEDS: Morphine VIAL* 4 MG/ML VIAL (1 ml vial) IV PRN ×3 (01:07→23:59)
[2018-10-03] MEDS: oxyCODONE TAB* 5 MG TAB PO PRN ×5 (01:57→22:12)
[2018-10-03] MEDS ORDERED: LORazepam TAB(*) 1 MG PO STA (04:16)
[2018-10-03 05:47] LABS: Hematocrit 38 % (42-52); Hemoglobin 12.8 g/dl (14.0-18.0); Platelet Count 251 10^3/ul (150-450)
[2018-10-03 05:52] LABS: INR 1.05 (0.77-1.02)
[2018-10-03 06:05] LABS: EGFR Non-African American 78.9 (>60)
[2018-10-03] MEDS: Morphine TAB Extended Release (*) 30 MG TAB.ER PO SCH ×2 (07:43→19:39)
[2018-10-03] MEDS: ceFAZolin 1 GM in Dextrose (*) 1 GM/50 ML BAG IVPB SCH ×2 (07:46→15:57)
[2018-10-03] MEDS: Magnesium Hydroxide LIQ* 30 ML UDC PO SCH ×2 (08:28→22:01)
[2018-10-03] MEDS: Vitamin THERAPEUTIC TAB PO SCH (08:28)
[2018-10-03] MEDS: Docusate CAP* 100 MG PO SCH ×2 (08:28→22:00)
[2018-10-03] MEDS ORDERED: Hydrochlorothiazide TAB* 25 MG PO SCH (09:00)
--- NOTE | 2018-10-03 10:07 | PN ---
Progress Note - Progress Note Date of Service: 10/03/18 SOAP: Subjective: []Patient seen OOB in chair, doing very well. Walked with therapy this am. Denies dizziness, SOB or chest pain. Hopes to go home this afternoon after therapy session. Objective: [] Vital Signs Temp 98.6 F 10/03/18 08:17 Pulse 80 10/03/18 08:17 Resp 18 10/03/18 09:38 BP 124/66 10/03/18 08:17 Pulse Ox 97 10/03/18 08:17 Intake & Output 10/02/18 10/03/18 10/03/18 18:59 06:59 18:59 Intake Total 1999 1700 470 Output Total 650 400 Balance 1350 1300 470 Weight 298 lb 3.2 oz Intake: IV Fluids 1999 Oral 1700 470 Output: Dodd 500 400 Estimated Blood Loss 150 Laboratory Results - last 24 hr 10/03/18 10/03/18 10/03/18 05:28 05:28 05:28 Hgb 12.8 L Hct 38 L Plt Count 251 MPV 7.0 L INR (Anticoag Therapy) 1.05 H Sodium 134 L Potassium 3.9 Chloride 102 Carbon Dioxide 26 Anion Gap 6 BUN 18 Creatinine 0.96 Est GFR ( Amer) 95.4 Est GFR (Non-Af Amer) 78.9 BUN/Creatinine Ratio 18.8 Glucose 133 H Calcium 8.4 L Right hip dressings changed, few drops of blood on dressings, wound benign, no ecchymosis, minimal buttock/thigh edema calf NT and soft +DF/PF right ankle sensation intact distally Assessment: []s/p RTH arthroplasty POD #1 Plan: []PT/OT this afternoon Home this evening Change DVT prophylaxis to ASA 325mg BID Follow up as scheduled 10-[address] Tan
--- NOTE | 2018-10-03 11:42 | PN ---
Progress Note - Progress Note Date of Service: 10/03/18 SOAP: Subjective: []Patient seen OOB in chair, having some difficulty with pain management. Long acting narcotic added by Dr. Tan this am. Denies SOB, CP or palpitations. Objective: [] Vital Signs Temp 97.4 F 10/03/18 11:29 Pulse 72 10/03/18 11:29 Resp 18 10/03/18 11:29 BP 115/57 10/03/18 11:29 Pulse Ox 95 10/03/18 11:29 Intake & Output 10/02/18 10/03/18 10/03/18 18:59 06:59 18:59 Intake Total 1999 1700 470 Output Total 650 400 Balance 1350 1300 470 Weight 298 lb 3.2 oz Intake: IV Fluids 1999 lr 1999 Oral 1700 470 Output: Dodd 500 400 Estimated Blood Loss 150 Laboratory Results - last 24 hr 10/03/18 10/03/18 10/03/18 05:28 05:28 05:28 Hgb 12.8 L Hct 38 L Plt Count 251 MPV 7.0 L INR (Anticoag Therapy) 1.05 H Sodium 134 L Potassium 3.9 Chloride 102 Carbon Dioxide 26 Anion Gap 6 BUN 18 Creatinine 0.96 Est GFR ( Amer) 95.4 Est GFR (Non-Af Amer) 78.9 BUN/Creatinine Ratio 18.8 Glucose 133 H Calcium 8.4 L right knee dressing is dry and intact calf NT and soft +DF/PF right ankle sensation and circulation intact distally Assessment: []s/p RTK arthroplasty POD #1 Plan: []Pain management- 30mg Extended release morphine BID added PT/OT WBAT RLE Coumadin with Lovenox bridge- 8 mg today Dressing change 10/04 Home in 1-2 days with VNS, when pain managed
[2018-10-03] MEDS ORDERED: Enoxaparin(*) 40 MG/0.4 ML SYR SUBCUT SCH (12:00)
[2018-10-03] MEDS ORDERED: Warfarin TAB(*) 4 MG PO ONE (17:00)
--- NOTE | 2018-10-03 17:08 | PN ---
Subjective Date of Service: 10/03/18 Interval History: Patient seen, he had difficult night yesterday due to pain, and his pain medication has been adjusted since than. He does feel much better this afternoon. His BP been stable in the low normal range. no other acute events. He is ambulating as per ortho recommendations with the walker Past Medical History: Unchanged from Admission Objective Active Medications: Acetaminophen (Tylenol Tab*) 650 mg PO Q8H PRN PRN Reason: PAIN OR TEMPERATURE Atenolol (Tenormin Tab*) 50 mg PO 2100 [facility] Bisacodyl (Dulcolax Supp*) 10 mg [place] DAILY PRN PRN Reason: constipation Cyclobenzaprine HCl (Flexeril Tab*) 5 mg PO TID PRN PRN Reason: SPASMS Last Admin: 10/03/18 03:31 Dose: 5 mg Diphenhydramine HCl (Benadryl Iv*) 25 mg IV Q6H PRN PRN Reason: itching Docusate Sodium (Colace Cap*) 100 mg PO BID [facility] Last Admin: 10/03/18 08:28 Dose: 100 mg Enoxaparin Sodium (Lovenox(*)) 40 mg SUBCUT Q24H [facility] Last Admin: 10/03/18 12:18 Dose: 40 mg Hydrochlorothiazide (Hydrodiuril Tab*) 25 mg PO QAM [facility] Last Admin: 10/03/18 08:28 Dose: 25 mg Lactated Ringer's (Lactated Ringers 1000 Ml Bag*) 1,000 mls @ 75 mls/hr IV PER RATE [facility] Last Admin: 10/02/18 19:59 Dose: 75 mls/hr Lactulose (Lactulose*) 30 ml PO Q6H PRN PRN Reason: constipation Magnesium Hydroxide (Milk Of Magnesia Liq*) 30 ml PO BID [facility] Last Admin: 10/03/18 08:28 Dose: 30 ml Magnesium Hydroxide (Milk Of Magnesia Liq*) 30 ml PO Q6H PRN PRN Reason: constipation Morphine Sulfate (Morphine Vial*) 2 mg IV Q2H PRN PRN Reason: PAIN - SEVERE Last Admin: 10/03/18 03:31 Dose: 2 mg Morphine Sulfate (Ms Contin(*)) 30 mg PO Q12H [facility] Last Admin: 10/03/18 07:43 Dose: 30 mg Multivitamins (Theragran Tab*) 1 tab PO DAILY [facility] Last Admin: 10/03/18 08:28 Dose: 1 tab Ondansetron HCl (Zofran Inj*) 4 mg IV Q6H PRN PRN Reason: nausea Oxycodone HCl (Roxycodone Tab*) 10 mg PO Q4H PRN PRN Reason: PAIN - SEVERE Last Admin: 10/03/18 15:57 Dose: 10 mg Oxycodone/Acetaminophen (Percocet 5/325 Tab*) 1 tab PO Q4H PRN PRN Reason: PAIN Oxycodone/Acetaminophen (Percocet 5/325 Tab*) 2 tab PO Q4H PRN PRN Reason: PAIN Last Admin: 10/03/18 09:38 Dose: 2 tab Pharmacy Profile Note (Coumadin Daily Reminder*) 0 note FOLLOW UP 1700 [facility] Last Admin: 10/03/18 15:57 Dose: 1 note Vital Signs - 8 hr 10/03/18 10/03/18 10/03/18 09:38 11:29 11:40 Temperature 97.4 F Pulse Rate 72 Respiratory 18 18 16 Rate Blood Pressure 115/57 (mmHg) O2 Sat by Pulse 95 Oximetry 10/03/18 10/03/18 10/03/18 12:17 14:49 15:57 Temperature Pulse Rate Respiratory 16 16 18 Rate Blood Pressure (mmHg) O2 Sat by Pulse Oximetry Oxygen Devices in Use Now: None Appearance: Awake, alert. mild distress with pain with ambulations. Obese Eyes: No Scleral Icterus, PERRLA Ears/Nose/Mouth/Throat: NL Teeth, Lips, Gums Neck: NL Appearance and Movements; NL JVP, Trachea Midline Respiratory: Symmetrical Chest Expansion and Respiratory Effort, Clear to Auscultation Cardiovascular: NL Sounds; No Murmurs; No JVD, RRR Abdominal: NL Sounds; No Tenderness; No Distention Extremities: - - left knee immobilizer Result Diagrams: 10/03/18 05:28 10/03/18 05:28 Assess/Plan/Problems-Billing Assessment: - Patient Problems (1) Hypertension Current Visit: Yes Status: Acute Code(s): I10 - ESSENTIAL (PRIMARY) HYPERTENSION SNOMED Code(s): 84548433 Comment: - atenolol 50 mg daily - HCTZ 25 mg daily - Given his increase in pain medication regimen, I do expect that his BP may gets lower than his home average. I will d/c his HCTZ for now to ensure BP remain stable and avoid orthostatic. will keep him on beta blockers (2) Total knee replacement status Current Visit: Yes Status: Acute Code(s): Z96.659 - PRESENCE OF UNSPECIFIED ARTIFICIAL KNEE JOINT SNOMED Code(s): 4984847081311 Comment: - On Morphine 2 mg IV Q 2hrs and oxycontin 30 mg PO Q12 - On percocet along with oxycodone regimen prn pending severity - PT/Acitivity as per ortho (3) DVT prophylaxis Current Visit: Yes Status: Acute Code(s): DTV9857 - SNOMED Code(s): 409531791 Comment: - Lovenox 40 mg SQ daily
[2018-10-03] MEDS ORDERED: Aspirin EC TAB* 325 MG PO SCH (21:00)
[2018-10-03] MEDS ORDERED: Atenolol TAB* 50 MG PO SCH (21:00)
--- NOTE | 2018-10-03 21:22 | OP ---
OPERATIVE REPORT: DATE OF OPERATION: 10/02/18 DATE OF : 53 SURGEON: Mary Tan MD SENIOR FUND ACCOUNTANT: CAMILLA Tran. Mr. Barton did help throughout the procedure with preparation of the leg, wound retraction, manipulat ion of the knee and wound closure. ANESTHESIOLOGIST: Dr. Yin. ANESTHESIA: Spinal. PRE-OP DIAGNOSIS: Severe end stage degenerative osteoarthritis of the right knee joint. POST-OP DIAGNOSIS: Severe end stage degenerative osteoarthritis of the right knee joint. OPERATIVE PROCEDURE: Right total knee arthroplasty. TOURNIQUET TIME: 51 minutes. COMPLICATIONS: None. ESTIMATED BLOOD LOSS: 250 cc. SPECIMEN: Bone and cartilage from the right knee joint sent to Pathology. HARDWARE USED: This is cemented [employer] total knee arthroplasty hardware. Two packages of S implex bone cement. For the femur, a size 6 right posterior stabilized Oxinium Legion femoral compon ent. For the tibia, size 5, right tibial base plate Ginger II. For the insert, a 9-mm posterior st abilized articular insert, size 5/6 and for the patella, a 32-mm 3 peg all poly patella with 7.5 thic kness. BRIEF HISTORY/INDICATIONS: Mr. Calvo is a 63-year-old gentleman with severe right knee pain. Radio graphs showed advanced arthritis. He failed conservative treatment with antiinflammatories, pain med ications and physical therapy. Due to continued pain and decreased quality of life, the patient elec bon to undergo right total knee arthroplasty. Informed consent was obtained from the patient. He un derstood the risks of surgery included, but were not limited to, bleeding, infection, damage to nearb y structures, continued pain, need for further surgery, intraoperative fracture, nerve palsy, hardwar e failure or loosening, knee stiffness, loss of motion, stroke, heart attack, blood clot and . Patient wished to proceed. INTRAOPERATIVE FINDINGS: Intraoperatively, the patient was noted to have complete loss of cartilage in the patellofemoral and medial compartments. He had significant osteophyte formation. DESCRIPTION OF PROCEDURE: Mr. Calvo was identified in the preanesthesia unit. His right lower extre mity was marked as the correct operative side. Informed consent was signed and placed in the chart. The patient was taken to the operating room and placed under spinal anesthesia. A Dodd catheter wa s placed. Tourniquet was placed on the right thigh. Right lower extremity was prepped and draped in the usual sterile fashion. Preop time-out was made to correctly identify the patient's side and sit e. Appropriate perioperative antibiotics were given within 1 hour of incision. Tourniquet was inflated and total tourniquet time for this procedure was 51 minutes. An incision was made and carried down to the extensor mechanism. A new 10 blade was used to make a standard medial parapatellar arthrotomy. Patella was subluxed laterally. Electrocautery was used to subperiosteally elevate soft tissue off the superomedial tibia to the mid sagittal plane. The knee was flexed up. The anterior horn of the lateral meniscus and ACL were sharply released. A drill was used to enter t he distal femur. Intramedullary distal femoral cutting guide was pinned on the distal femur. An osc illating saw was used to make the distal femoral cut. Next, the external rotation guide was pinned o n the distal femur. The distal femur was sized to a size 6. A size 6 multi-cutting jig was pinned o n the distal femur. Oscillating saw was used to make the appropriate 4 chamfer cuts. The PCL was completely released. Extramedullary tibial cutting guide was pinned on the proximal tibi a. An oscillating saw was used to make the proximal tibial cut perpendicular to the mechanical axis of the tibia. The bone was carefully removed. The knee was brought out into full extension. The spa cer block had excellent fit with the knee in full extension. The medial and lateral ligaments were w ell balanced. Flexion and extension gaps were well balanced. The knee was flexed up. Lamina spreade r was placed both medially and laterally. Any remaining meniscus was carefully removed using electro cautery. Curved osteotome was used to remove any posterior osteophytes. Tibial tray and drop catarino we re placed and once again confirmed a satisfactory tibial cut. A size 6 right femoral trial was impacted on to the distal femur and had excellent stability. The andriy x for the posterior stabilized implant was prepared using a reamer and box cut osteotome. A size 5 t ibial tray with a 9-mm insert trial was placed and the knee was taken through a range of motion. The re was full extension to 130 degrees of flexion. There was satisfactory patellofemoral tracking. Th e patella was everted. 7 mm of patellar bone and cartilage were carefully removed using an oscillati ng saw. The patella was sized to a size 32. Three peg holes were drilled through the size 32 guide. A 32 trial patella with a 7.5 thickness was placed and the knee was taken through a range of motion. There was satisfactory patellofemoral tracking. All trials were carefully removed. Tibia was subluxed anteriorly and sized to a size 5. Proximal ti ximena was prepared using a size 5 keel punch. All bony cut surfaces were copiously irrigated with ster ile saline and dried. Final implants were cemented into place starting with the tibia followed by th e femur and last the patella. A 9-mm insert trial was placed while the knee was brought out into ful l extension. The tourniquet was turned down at 51 minutes. Electrocautery was used to obtain meticu lous hemostasis. The knee was copiously irrigated with sterile saline. Once the cement had fully cu red, the insert trial was removed. Any excess cement was removed from around the capsule and hardwar e. Final insert chosen was a 9-mm posterior stabilized articular insert, size 5/6. This was locked into position on the tibial tray. Stability of the insert was checked and rechecked and noted to be stabl e. The extensor mechanism was closed using interrupted #1 Vicryl. The rest of the incisions were closed in layered fashion using 0 and 2-0 Vicryl. The skin was closed using running 3-0 nylon suture. Abhinav rile Xeroform, 4x4s, and Webril were used to cover the incision. Valente wrap and cold pack were placed over this. The patient's anesthesia was reversed without difficulty. He was taken to the PACU in st able condition. Intended weightbearing will be weightbearing as tolerated. Intended DVT prophylaxis will be Coumadin with a Lovenox bridge. [id number]/[facility] #: [id number]
[2018-10-04] MEDS: oxyCODONE TAB* 5 MG TAB PO PRN (05:39)
[2018-10-04 06:23] LABS: Hematocrit 36 % (42-52); Hemoglobin 12.2 g/dl (14.0-18.0); Platelet Count 221 10^3/ul (150-450)
[2018-10-04 06:29] LABS: INR 2.39 (0.77-1.02)
[2018-10-04] MEDS: Docusate CAP* 100 MG PO SCH (08:23)
[2018-10-04] MEDS: Vitamin THERAPEUTIC TAB PO SCH (08:23)
[2018-10-04] MEDS: Magnesium Hydroxide LIQ* 30 ML UDC PO SCH (08:23)
[2018-10-04] MEDS: Morphine TAB Extended Release (*) 30 MG TAB.ER PO SCH (08:23)
[2018-10-04] MEDS: oxyCODONE/Acetamin 5/325 MG* TAB PO PRN (08:24)
--- NOTE | 2018-10-04 08:27 | PN ---
Progress Note - Progress Note Date of Service: 10/04/18 SOAP: Subjective: POD #2 Right TKA, doing well. Pain controlled, able to ambulate with walker. Denies CP/SOB, f/c, n/v or calf pain. Objective: Vitals: Temp Pulse Resp BP Pulse Ox 98.3 F 72 18 124/53 94 10/04/18 07:42 10/04/18 07:42 10/04/18 07:42 10/04/18 07:42 10/04/18 07:42 Gen: A&Ox3, NAD at rest sitting in bed RLE: Incision C/D/I. Mild edema and ecchymosis, no erythema. +f/e at ankle and MTPs, N/V intact Labs: Laboratory Results - last 24 hr 18 10/04/18 05:58 05:58 Hgb 12.2 L Hct 36 L Plt Count 221 MPV 7.0 L INR (Anticoag Therapy) 2.39 H Assessment: POD #2 Right TKA Plan: D/C home today INR 2.39, hold Coumadin tonight, 2mg Saturday F/u with Dr. Tan 10-14 days post op
[2018-10-04 12:36] VITALS: BP 127/58
--- NOTE | 2018-10-04 15:52 | DS ---
AMENDED REPORT NOW INCLUDES COSIGNER DESIGNATION DISCHARGE SUMMARY: DATE OF ADMISSION: 10/02/18 DATE OF DISCHARGE: 10/04/18 PROVIDER: Dr. Mary Tan.* (DICTATED BY CAMILLA FENG) ADMITTING DIAGNOSIS: Severe end-stage osteoarthritis of the right knee. DISCHARGE DIAGNOSIS: Severe end-stage osteoarthritis of the right knee, status post right total knee arthroplasty. SECONDARY DIAGNOSIS: Hypertension. HISTORY OF PRESENT ILLNESS: Mr. Calvo is a 63-year-old gentleman, who had ongoing pain in the right knee. He failed conservative management and elected to proceed with a right total knee arthroplasty. HOSPITAL COURSE: On 10/02/18, the patient was admitted to [facility] and underwent a successful right total knee arthroplasty. He recovered briefly in the Postanesthesia Care Unit and was transferred to the short-stay surgical unit in stable condition. On postop day 1, the patient was having some difficulty controlling his pain and long-acting morphine was added to his regular pain regimen and he was feeling better. He was able to ambulate with physical therapy. No lightheadedness or dizziness. H and H was 12.8 and 38. INR was 1.05 with 6 mg of Coumadin previously. On postop day 2, the patient was feeling much better and pain was well controlled. He was found stable for discharge home at this point. His H and H was stable at 12.2 and 36. INR increased to 2.39 with 8 mg of Coumadin previously. He denies any nausea, vomiting, trouble with constipation, chest pain, shortness of breath, or calf pain. Throughout the hospital course, the patient's vital signs remained stable and he was afebrile. DISCHARGE CONDITION: Stable. DISCHARGE DISPOSITION: Home with visiting nurse service. DISCHARGE MEDICATIONS: The patient will use: 1. Percocet 5/325 one to two tabs p.o. q.4 to 6 hours p.r.n. pain. 2. MS Contin 30 mg p.o. b.i.d. for 5 days. 3. Colace 100 mg p.o. b.i.d. p.r.n. constipation. 4. Coumadin 2 mg daily or as directed. He will hold his Coumadin dose on 10/04 and resume 2 mg on 10/05/18. He will resume his home medications of: 1. Hydrochlorothiazide 25 mg p.o. daily. 2. Metamucil daily. 3. Atenolol 50 mg daily. DISCHARGE INSTRUCTIONS: He is weight bearing as tolerated with the use of a rolling walker. He is understanding to keep the incision clean and dry until postop day 3. He may shower normally at that time. He is not to submerge the incision in a bath tub, hot tub, or swimming pool. He will apply dry dressing as needed. He will follow up in the office in 10 to [address] Tan. He is understanding to call the office with any problems or concerns or go directly to the emergency room with any chest pain, shortness of breath, fever of greater than 101, calf pain or swelling. CAMILLA FENG [id number]/[facility] #: [id number] ANGELINA
== END 2018-10-04 16:15 | disposition home health service (06) | DRG 470 ==
LOC: AA 13:05 → SSU 19:19
PROVIDERS: ADMIT Orthopaedic Surgery Adult Reconstructive Orthopaedic Surgery; ATTEND Internal Medicine
PROC: 0SRC069 Replacement of Right Knee Joint with Oxidized Zirconium on Polyethylene Synthetic Substitute, Cemented, Open Approach (ICD-10-PCS; principal; 2018-10-02 15:00)
DX: M17.0 Bilateral primary osteoarthritis of knee (principal); Z68.42 Body mass index [BMI] 45.0-49.9, adult; E66.01 Morbid (severe) obesity due to excess calories; I10 Essential (primary) hypertension; M25.761 Osteophyte, right knee; E78.5 Hyperlipidemia, unspecified; Z79.899 Other long term (current) drug therapy; Z88.6 Allergy status to analgesic agent; Z82.49 Family history of ischemic heart disease and other diseases of the circulatory system
CPT/HCPCS: 36415; 80048; 85014; 85018; 85049; 85610; A9270-GY; C1776; G8987-GO-CJ; G8988-GO-CI; J0690; J1170; J1650; J2250; J2270; J2704; J2795; J3010